=== PATIENT | female | born 1940 | race Asian ===

== ENCOUNTER 2017-09-05 00:08 | Inpatient (IN) | payer MEDICARE, MEDICAID ==
[~2017-09-05] VITALS: Ht 152.4 cm; Wt 68.9 kg
[2017-09-05] VITALS (20 sets, daily range): BP systolic 91–147; BP diastolic 49–110
--- NOTE | 2017-09-05 00:22 | Emergency Room Report ---
History of Present Illness General Chief Complaint: Multiple Trauma/Fall Source: Medical Record Present Illness HPI Patient was reported to have a fall while walking at the nursing facility History is obtained from report from paramedics and the nursing facility reports Reportedly the patient is in with 3 with some assistance usually and had a trip and fall Patient has history of CVA There appears to be imaging showing left femoral fracture There is no reports of vomiting or diarrhea unknown regarding lapse of consciousness Patient has discomfort to the left hip Allergies: Coded Allergies: No Known Allergies (Unverified , 09/05/17) Patient History Past Medical History: see triage record Pertinent Family History: none Last Menstrual Period: n/a Reviewed Nursing Documentation: PMH: Agreed, PSxH: Agreed Nursing Documentation-PMH Past Medical History: No History, Except For Review of Systems All Other Systems: limited - Other than the ones mentioned in the history of present illness all others are reviewed however they do stay limited due to the patient's mental status Physical Exam Vital Signs Date Time Temp Pulse Resp B/P (MAP) Pulse Ox O2 Delivery O2 Flow Rate FiO2 09/05/17 00:03 98.8 136 34 142/88 96 Room Air Sp02 EP Interpretation: reviewed, normal General Appearance: no apparent distress Head: normocephalic, atraumatic Eyes: bilateral eye PERRL, bilateral eye EOMI ENT: normal pharynx Neck: full range of motion, supple Respiratory: lungs clear Cardiovascular #1: tachycardia, irregularly irregular Gastrointestinal: non tender, soft Genitourinary: no CVA tenderness Musculoskeletal: other - Left leg is rotated externally and shortened compared to the right Neurologic: responsive Skin: normal color, no rash Lymphatic: no adenopathy Medical Decision Making Diagnostic Impression: Primary Impression: Femoral neck fracture Additional Impressions: UTI (urinary tract infection) Atrial fibrillation Atrial fibrillation with RVR ER Course Patient present in nature fibrillation Review of records reveals that she does have a history of fibrillation However patient was tachycardic X-ray imaging reveals evidence of a left-sided femoral neck fracture Reports of the paramedics state that the patient usually ambulatory Orthopedics is involved and the patient is admitted for further care Labs Test 09/05/17 00:18 09/05/17 00:30 09/05/17 01:20 09/05/17 02:36 White Blood Count 12.2 K/UL (4.8-10.8) Red Blood Count 4.55 M/UL (4.20-5.40) Hemoglobin 14.8 G/DL (12.0-16.0) Hematocrit 44.1 % (37.0-47.0) Mean Corpuscular Volume 97 FL (80-99) Mean Corpuscular Hemoglobin 32.4 PG (27.0-31.0) Mean Corpuscular Hemoglobin Concent 33.5 G/DL (32.0-36.0) Red Cell Distribution Width 12.4 % (11.6-14.8) Platelet Count 212 K/UL (150-450) Mean Platelet Volume 6.4 FL (6.5-10.1) Neutrophils (%) (Auto) 77.1 % (45.0-75.0) Lymphocytes (%) (Auto) 15.2 % (20.0-45.0) Monocytes (%) (Auto) 7.1 % (1.0-10.0) Eosinophils (%) (Auto) 0.1 % (0.0-3.0) Basophils (%) (Auto) 0.5 % (0.0-2.0) Prothrombin Time 9.6 SEC (9.30-11.50) Prothromb Time International Ratio 0.9 (0.9-1.1) Activated Partial Thromboplast Time 24 SEC (23-33) Sodium Level 141 MMOL/L (136-145) Potassium Level 4.2 MMOL/L (3.5-5.1) Chloride Level 104 MMOL/L (98-107) Carbon Dioxide Level 29 MMOL/L (21-32) Anion Gap 8 mmol/L (5-15) Blood Urea Nitrogen 18 mg/dL (7-18) Creatinine 1.0 MG/DL (0.55-1.30) Estimat Glomerular Filtration Rate mL/min (>60) Glucose Level 123 MG/DL (74-106) Calcium Level 9.2 MG/DL (8.5-10.1) Total Bilirubin 0.7 MG/DL (0.2-1.0) Aspartate Amino Transf (AST/SGOT) 26 U/L (15-37) Alanine Aminotransferase (ALT/SGPT) 27 U/L (12-78) Alkaline Phosphatase 72 U/L (46-116) Total Creatine Kinase 113 U/L (26-308) Creatine Kinase MB 2.1 NG/ML (0.0-3.6) Creatine Kinase MB Relative Index 1.8 Troponin I 0.057 ng/mL (0.000-0.056) Total Protein 7.3 G/DL (6.4-8.2) Albumin 3.7 G/DL (3.4-5.0) Globulin 3.6 g/dL Albumin/Globulin Ratio 1.0 (1.0-2.7) Lipase 113 U/L (73-393) Lactic Acid Level 2.50 mmol/L (0.66-2.22) 2.60 mmol/L (0.66-2.22) Urine Color Pale yellow Urine Appearance Slightly cloudy Urine pH 6 (4.5-8.0) Urine Specific [place] 1.020 (1.005-1.035) Urine Protein 1+ (NEGATIVE) Urine Glucose (UA) 1+ (NEGATIVE) Urine Ketones Negative (NEGATIVE) Urine Occult Blood 1+ (NEGATIVE) Urine Nitrite Positive (NEGATIVE) Urine Bilirubin Negative (NEGATIVE) Urine Urobilinogen Normal MG/DL (0.0-1.0) Urine Leukocyte Esterase 2+ (NEGATIVE) Urine RBC 2-4 /HPF (0 - 2) Urine WBC 30-40 /HPF (0 - 2) Urine Squamous Epithelial Cells Few /LPF (NONE/OCC) Urine Bacteria Many /HPF (NONE) Rhythm Strip Diag. Results EP Interpretation: yes Rate: 120 Rhythm: no PVC's, no ectopy, other - irregularly irregular Chest X-Ray Diagnostic Results Chest X-Ray Diagnostic Results : Chest X-Ray Ordered: Yes # of Views/Limited/Complete: 1 View Indication: Chest Pain EP Interpretation: Yes Interpretation: no consolidation, no effusion, no pneumothorax, other - Mediastinum is abnormal left lower lobe dizziness Impression: No acute disease Electronically Signed by: Lien Maurice DO Other X-Ray Diagnostic Results Other X-Ray Diagnostic Results : X-Ray ordered: left hip # of Views/Limited Vs Complete: 3 View Indication: Pain EP Interpretation: Yes Interpretation: no soft tissue swelling, other - Acute fracture with mild dislocation left femoral neck Impression: Other - left femoral neck fracture Electronically Signed by: Lien Maurice DO CT/MRI/US Diagnostic Results CT/MRI/US Diagnostic Results : Impression CT pelvic: Left femoral neck fracture Last Vital Signs Date Time Temp Pulse Resp B/P (MAP) Pulse Ox O2 Delivery O2 Flow Rate FiO2 09/05/17 00:03 98.8 136 34 142/88 96 Room Air Status: improved Disposition: ADMITTED INPATIENT Condition: Serious LIEN MAURICE D.O. Sep 05, 2017 00:22
[2017-09-05 00:34] LABS: BASOPHILS % (AUTO) 0.5 % (0.0-2.0); EOSINOPHILS % (AUTO) 0.1 % (0.0-3.0); LYMPHOCYTES % (AUTO) 15.2 % (20.0-45.0); MEAN CORPUSCULAR HEMOGLOBIN 32.4 PG (27.0-31.0); MEAN CORPUSCULAR HGB CONC 33.5 G/DL (32.0-36.0); MEAN CORPUSCULAR VOLUME 97 FL (80-99); MEAN PLATELET VOLUME 6.4 FL (6.5-10.1); MONOCYTES % (AUTO) 7.1 % (1.0-10.0); NEUTROPHILS % (AUTO) 77.1 % (45.0-75.0); PLATELET COUNT 212 K/UL (150-450); RED BLOOD COUNT 4.55 M/UL (4.20-5.40); RED CELL DISTRIBUTION WIDTH 12.4 % (11.6-14.8); WHITE BLOOD COUNT 12.2 K/UL (4.8-10.8)
[2017-09-05 00:45] LABS: INR 0.9 (0.9-1.1); PROTHROMBIN TIME 9.6 SEC (9.30-11.50)
[2017-09-05 01:07] LABS: ALANINE AMINOTRANSFERASE 27 U/L (12-78); ANION GAP 8 mmol/L (5-15); ASPARTATE AMINO TRANSFERASE 26 U/L (15-37); CALCIUM 9.2 MG/DL (8.5-10.1); CARBON DIOXIDE 29 MMOL/L (21-32); CHLORIDE 104 MMOL/L (98-107); CKMB 2.1 NG/ML (0.0-3.6); LIPASE 113 U/L (73-393); POTASSIUM 4.2 MMOL/L (3.5-5.1); SODIUM 141 MMOL/L (136-145); TOTAL PROTEIN 7.3 G/DL (6.4-8.2)
[2017-09-05 01:18] LABS: REFLEX LACTIC ACID YES OR NO YES
[2017-09-05] MEDS ORDERED: dilTIAZem HCl 25mg/5ml Inj IV ONE ×2 (01:30→16:30)
[2017-09-05 01:34] LABS: APPEARANCE,URINE SLIGHTLY CLOUDY; KETONES,URINE NEGATIVE (NEGATIVE); LEUKOCYTE ESTERASE ,URINE 2+ (NEGATIVE); NITRITE,URINE POSITIVE (NEGATIVE); PH,URINE 6 (4.5-8.0); PROTEIN,URINE 1+ (NEGATIVE); UROBILINOGEN,URINE NORMAL MG/DL (0.0-1.0)
[2017-09-05 01:44] LABS: BACTERIA,URINE MANY /HPF; SQUAMOUS EPITHELIAL CELL,UR FEW /LPF (NONE/OCC); WBC,URINE 30-40 /HPF (0 - 2)
[2017-09-05] MEDS ORDERED: ADVANCED ANTAC355 ML ORAL (01:49)
[2017-09-05] MEDS ORDERED: POTASSIUM 25 M25 ME1 PO (01:50)
[2017-09-05] MEDS ORDERED: ACETAMINOPHEN325 M1 ORAL (01:55)
[2017-09-05] MEDS ORDERED: CARDIZEM30 M1 PO (01:58)
[2017-09-05] MEDS ORDERED: DIGOXIN125 MCG ORAL (01:58)
[2017-09-05] MEDS ORDERED: Morphine Sulfate 2mg/ml Inj IVP ONE (02:00)
[2017-09-05] MEDS ORDERED: FERROUS FUMARA324 M1 PO (02:03)
[2017-09-05] MEDS ORDERED: DULCOLAX10 MG RC (02:03)
[2017-09-05] MEDS ORDERED: METOPROLOL TART50 MG ORAL (02:03)
[2017-09-05] MEDS ORDERED: cefTRIAXone 1 GM in D5W 55 ML IVPB ONE (02:45)
[2017-09-05] MEDS ORDERED: Flu Vaccine Quadrivalent 0.5ml IM ONE (09:00)
[2017-09-05] MEDS ORDERED: Pneumococcal Vaccine 25mcg/0.5ml IM ONE (09:00)
--- NOTE | 2017-09-05 09:57 | Diagnostic Imaging Report ---
Indication: Pelvic pain and trauma. Technique: Continuous helical transaxial imaging of the pelvis was obtained from the iliac crest to the pubic symphysis. Coronal 2-D reformats were also obtained. Study obtained in a Siemens sensation [address] Intravenous non-ionic contrast was administered. Total Dose length Product (DLP): [address] Dose Index Volume (CTDIvol): 2.25, 0.25, 14.16 mGy Comparison: None Findings: There is acute fracture of the left femoral neck. This is intracapsular. The fracture is slightly impacted and mildly displaced. Bones are osteopenic in keeping with the patient's advanced age. No other fractures are identified. Degenerative facet arthropathy noted in the lower lumbar spine as well as narrowing of intervertebral discs, vacuum phenomena within the discs and endplate spurs. Minimal arterial vascular calcifications noted within the iliac arteries. Small cavitation noted in the antrum part of the uterus probably associated with a small fibroid. Impression: Acute left femoral neck fracture. Other findings as above. [facility] has communicated the preliminary results to the Emergency Department. Their findings are largely concordant with this report. The CT scanner at [facility] is accredited by the [employer] and the scans are performed using dose optimization techniques as appropriate to a performed exam including Automatic Exposure control.
--- NOTE | 2017-09-05 10:19 | Consultation ---
Consult Note Consult Note 76 yo female with fall and left hip femoral neck fracture xray reviewed Assessment/Plan left hip femoral neck fracture plan for left hip hemiarthroplasty on optimize medically. 2D echo npo at [facility] for sx 7am IRINA MIR Sep 05, 2017 10:19
--- NOTE | 2017-09-05 12:39 | Diagnostic Imaging Report ---
Indication: Dyspnea Comparison: None A single view chest radiograph was obtained. Findings: Prominent pulmonary vascularity and heart size noted. Aorta is calcified. Bones are osteopenic. Impression: Prominent vascularity without overt CHF
--- NOTE | 2017-09-05 12:39 | Diagnostic Imaging Report ---
Indications: hip pain Findings: Two views of the left hip were obtained. Slightly displaced intracapsular fracture of the left femoral neck demonstrated. The fracture appears acute. The bones are osteopenic. Impression: Acute fracture of the left femoral neck
--- NOTE | 2017-09-05 15:55 | Cardiac Electrophysiology PN ---
Subjective Subjective [id number] Objective Last 24 Hour Vital Signs Date Time Temp Pulse Resp B/P (MAP) Pulse Ox O2 Delivery O2 Flow Rate FiO2 09/05/17 15:49 98.3 100 18 121/89 91 Room Air 09/05/17 12:00 135 09/05/17 11:47 98.3 73 18 133/82 91 Room Air 09/05/17 08:10 98.1 93 18 138/103 93 Room Air 09/05/17 08:00 110 09/05/17 04:00 102 09/05/17 03:37 98.1 114 22 138/86 93 Room Air 09/05/17 03:36 116 09/05/17 03:15 98.0 97 20 130/84 95 Nasal Cannula 2.0 09/05/17 02:53 98.0 97 20 130/84 95 Nasal Cannula 2.0 09/05/17 02:39 98.0 09/05/17 01:38 98.8 98 18 121/84 93 Room Air 09/05/17 01:24 143 147/100 09/05/17 00:03 98.8 136 34 142/88 96 Room Air Intake and Output 09/05/17 09/06/17 19:00 07:00 Intake Total 120 ml Balance 120 ml Intake Oral 120 ml # Voids 2 Laboratory Tests Test 09/05/17 00:18 09/05/17 00:30 09/05/17 01:20 09/05/17 02:36 White Blood Count 12.2 K/UL (4.8-10.8) H Red Blood Count 4.55 M/UL (4.20-5.40) Hemoglobin 14.8 G/DL (12.0-16.0) Hematocrit 44.1 % (37.0-47.0) Mean Corpuscular Volume 97 FL (80-99) Mean Corpuscular Hemoglobin 32.4 PG (27.0-31.0) H Mean Corpuscular Hemoglobin Concent 33.5 G/DL (32.0-36.0) Red Cell Distribution Width 12.4 % (11.6-14.8) Platelet Count 212 K/UL (150-450) Mean Platelet Volume 6.4 FL (6.5-10.1) L Neutrophils (%) (Auto) 77.1 % (45.0-75.0) H Lymphocytes (%) (Auto) 15.2 % (20.0-45.0) L Monocytes (%) (Auto) 7.1 % (1.0-10.0) Eosinophils (%) (Auto) 0.1 % (0.0-3.0) Basophils (%) (Auto) 0.5 % (0.0-2.0) Prothrombin Time 9.6 SEC (9.30-11.50) Prothromb Time International Ratio 0.9 (0.9-1.1) Activated Partial Thromboplast Time 24 SEC (23-33) Sodium Level 141 MMOL/L (136-145) Potassium Level 4.2 MMOL/L (3.5-5.1) Chloride Level 104 MMOL/L (98-107) Carbon Dioxide Level 29 MMOL/L (21-32) Anion Gap 8 mmol/L (5-15) Blood Urea Nitrogen 18 mg/dL (7-18) Creatinine 1.0 MG/DL (0.55-1.30) Estimat Glomerular Filtration Rate mL/min (>60) Glucose Level 123 MG/DL (74-106) H Calcium Level 9.2 MG/DL (8.5-10.1) Total Bilirubin 0.7 MG/DL (0.2-1.0) Aspartate Amino Transf (AST/SGOT) 26 U/L (15-37) Alanine Aminotransferase (ALT/SGPT) 27 U/L (12-78) Alkaline Phosphatase 72 U/L (46-116) Total Creatine Kinase 113 U/L (26-308) Creatine Kinase MB 2.1 NG/ML (0.0-3.6) Creatine Kinase MB Relative Index 1.8 Troponin I 0.057 ng/mL (0.000-0.056) Total Protein 7.3 G/DL (6.4-8.2) Albumin 3.7 G/DL (3.4-5.0) Globulin 3.6 g/dL Albumin/Globulin Ratio 1.0 (1.0-2.7) Lipase 113 U/L (73-393) Lactic Acid Level 2.50 mmol/L (0.66-2.22) H 2.60 mmol/L (0.66-2.22) H Urine Color Pale yellow Urine Appearance Slightly cloudy Urine pH 6 (4.5-8.0) Urine Specific [place] 1.020 (1.005-1.035) Urine Protein 1+ (NEGATIVE) H Urine Glucose (UA) 1+ (NEGATIVE) H Urine Ketones Negative (NEGATIVE) Urine Occult Blood 1+ (NEGATIVE) H Urine Nitrite Positive (NEGATIVE) H Urine Bilirubin Negative (NEGATIVE) Urine Urobilinogen Normal MG/DL (0.0-1.0) Urine Leukocyte Esterase 2+ (NEGATIVE) H Urine RBC 2-4 /HPF (0 - 2) H Urine WBC 30-40 /HPF (0 - 2) H Urine Squamous Epithelial Cells Few /LPF (NONE/OCC) Urine Bacteria Many /HPF (NONE) H ANIYA SMITH Sep 05, 2017 15:55
--- NOTE | 2017-09-05 18:30 | Consultation ---
DATE OF CONSULTATION: ORTHOPEDIC CONSULTATION CONSULTING PHYSICIAN: Kal Iverson M.D. CONSULT CALLED BY: Lien Hoang M.D. HISTORY OF PRESENT ILLNESS: The patient is a pleasant 76-year-old female, who is a resident of [facility]. She was ambulating and she had a mechanical fall yesterday. She was complaining of left hip pain, had a hard time getting up. She was transferred to [facility] ER where she was noted to have a left hip femoral neck fracture. Orthopedic consult has been called for surgical intervention. The patient has a history of stroke. She does ambulate, but often unsteadily per her son and she uses a walker to get around. She denies any headache, dizziness, or syncopal episodes prior to the fall. PAST MEDICAL HISTORY: History of stroke. PAST SURGICAL HISTORY: None. CURRENT MEDICATIONS: Please see chart. ALLERGIES: None. SOCIAL HISTORY: She has a son who lives in the area, who is here with her today. She is a resident of [facility]. She is normally independent with her activities, although she has unsteady gait and uses a walker occasionally. She does not speak much [place]ian. PHYSICAL EXAMINATION: GENERAL: She is pleasant. She is resting comfortably in bed. Her left lower extremity is shortened and rotated, and she has some tenderness to palpation. She is neurovascularly intact. Her son is at bedside during examination and helps with translation. She is alert and oriented. She understands what is going on. LABORATORY AND DIAGNOSTIC DATA: Her x-ray and CT are reviewed. There is a left hip femoral neck fracture. IMPRESSION: Left hip femoral neck fracture. DISCUSSION: At this time, I discussed with the patient and her son my findings and my recommendation for left hip hemiarthroplasty. We also discussed nonsurgical intervention, although the patient's son understands that with nonsurgical intervention, she will be bedbound and unable to ambulate and may have chronic pain issues and her goal is to be up and standing and using a walker again. Therefore, again we recommend left hip hemiarthroplasty. We talked about the surgery including what is involved with rehabilitation recovery as well as the surgical procedure. The patient understands that there is risk of anesthesia, which will be discussed further by anesthesiologist. There is a risk of fracture, dislocation, hardware failure, need for revision surgery down the line, possible need for total hip arthroplasty. There is a risk of leg-length discrepancy, infection, bleeding, DVT and PE. This was all discussed with them and they did verbalize understanding. Nurse was at the bedside as well to help with additional translation and understanding. We will work on getting this set up for . We do need cardiac clearance and medical clearance. A 2D echo has been ordered. We will have Dr. Hoang see her and if he recommends cardiology involvement as well, we will certainly defer that. We will follow along, get this done on , and have her cleared medically in preparation. All the patient's and family questions were answered. Kal Iverson M.D. Shlomo Jalloh DR: KIM JOB#: [id number] CC:
[2017-09-05 19:33] LABS: REFLEX LACTIC ACID YES OR NO YES
[2017-09-05] MEDS: Metoprolol Tartrate 50mg tab ORAL SCH (20:47)
[2017-09-05] MEDS ORDERED: Metoprolol Tartrate 50mg tab ORAL SCH (21:00)
--- NOTE | 2017-09-05 21:00 | Cardiology Report ---
APPROVED REPORT EXAM: Two-dimensional and M-mode echocardiogram with Doppler and color Doppler. INDICATION Preop eval M-Mode DIMENSIONS IVSd1.2 (0.7-1.1cm)Left Atrium (MM)5.4 (1.6-4.0cm) LVDd4.2 (3.5-5.6cm)Aortic Root3.2 (2.0-3.7cm) PWd1.2 (0.7-1.1cm)Aortic Cusp Exc.1.8 (1.5-2.0cm) LVDs2.5 (2.5-4.0cm) PWs1.7 cm Other Information Technically limited study due to poor acoustical windows Normal left ventricular chamber size, systolic function and wall motion. Left ventricular ejection fraction estimated to be 50- 55 %. Mild left ventricular hypertrophy. Anterior Echo-free space, may be due to pericardial fat or effusion. Moderate left atrial enlargement. Right cardiac chamber sizes are within normal limits. Focal aortic valve sclerosis with adequate cusp excursion. Thickened mitral valve leaflets with normal excursion. Mitral annulus and aortic root calcification. Normal pulmonic valve structure. Normal tricuspid valve structure. IVC at normal size with physiologic collapse. A color flow and spectral Doppler study was performed and revealed: Trace aortic regurgitation. Mild mitral regurgitation. Can not determine left ventricular diastolic function by mitral diastolic velocities due to atrial fibrillation. Moderate tricuspid regurgitation. Tricuspid systolic velocities suggests peak right ventricular systolic pressure of 61 mmHg, consistent with severe pulmonary hypertension.
[2017-09-06] VITALS (39 sets, daily range): BP systolic 109–134; BP diastolic 60–106
--- NOTE | 2017-09-06 00:30 | Consultation ---
DATE OF CONSULTATION: 09/05/2017 CARDIOLOGY ELECTROPHYSIOLOGY CONSULTATION CONSULTING PHYSICIAN: Rufino Roger M.D. REFERRING PHYSICIAN: Lien Hoang M.D. REASON FOR CONSULTATION: Atrial fibrillation with rapid ventricular response as well as preoperative clearance prior to hip surgery. HISTORY OF PRESENT ILLNESS: The patient is a 76-year-old lady with history of hypertension who presented to the emergency room after she had a fall while walking at the nursing facility. The patient also has history of CVA. Imaging showed left femoral neck fracture. The patient was admitted and Cardiology consultation was obtained for further evaluation. It is of note that in the emergency room the patient was in atrial fibrillation with rapid ventricular response at 100 to 136 beats per minute. REVIEW OF SYSTEMS: Review of systems was negative other what was mentioned in history of present illness. PAST MEDICAL HISTORY: 1. Hypertension. 2. Atrial fibrillation. MEDICATIONS: While in the group home facility include digoxin 0.125 mg daily, Cardizem 30 mg q.i.d., metoprolol 50 mg b.i.d., but she was not on anticoagulation. FAMILY HISTORY: Noncontributory. SOCIAL HISTORY: She lives in a group home facility. PHYSICAL EXAMINATION: VITAL SIGNS: Show of blood pressure of 121/89, pulse is 135 to 160, respirations 18, and she is afebrile. HEAD AND NECK: Shows no JVD. LUNGS: Clear. CARDIOVASCULAR: Irregularly irregular. S1 and S2, with no gallop or murmur. ABDOMEN: Soft. EXTREMITIES: Left hip tenderness with rotation of left hip. LABORATORY AND DIAGNOSTIC DATA: Echocardiogram showed ejection fraction 55% with mild left atrial enlargement, moderate tricuspid regurgitation. EKG showed atrial fibrillation with rapid ventricular response at rate of 132 beats per minute with voltage criteria for left ventricular hypertrophy and inferior as well as anterolateral ischemia on the EKG. ASSESSMENT: 1. Atrial fibrillation with rapid ventricular response with evidence of ischemia. We will transfer the patient to intensive care unit and start the patient on Cardizem drip. I will resume the patient's digoxin and metoprolol as well. I will hold off on anticoagulation until the patient is cleared from orthopedic perspective as we did not want the patient developed bleeding at the sites of her hip fracture. It is of note that the patient's CHADS2 score is more than 3 and she certainly needs long-term anticoagulation especially in view of female gender age of 76, hypertension, as well as history of prior cerebrovascular accident . 2. Hypertension. Resume the patient's Cardizem and metoprolol. 3. Ischemic changes on electrocardiogram. After stabilization of the heart rate, the patient would need nuclear stress test prior to her hip surgery. 4. Status post left hip fracture. Further evaluation by Dr. Iverson. Thank very much, Dr. Hoang, for allowing me to participate in the care of this patient. Please do not hesitate to contact for any questions regarding my evaluation. Rufino Roger M.D. DR: Matilde JOB#: [id number] CC:
[2017-09-06 05:23] LABS: BASOPHILS % (AUTO) 0.7 % (0.0-2.0); EOSINOPHILS % (AUTO) 1.5 % (0.0-3.0); LYMPHOCYTES % (AUTO) 14.7 % (20.0-45.0); MEAN CORPUSCULAR HEMOGLOBIN 33.7 PG (27.0-31.0); MEAN CORPUSCULAR HGB CONC 34.8 G/DL (32.0-36.0); MEAN CORPUSCULAR VOLUME 97 FL (80-99); MEAN PLATELET VOLUME 6.9 FL (6.5-10.1); MONOCYTES % (AUTO) 8.3 % (1.0-10.0); NEUTROPHILS % (AUTO) 74.8 % (45.0-75.0); PLATELET COUNT 144 K/UL (150-450); RED BLOOD COUNT 3.95 M/UL (4.20-5.40); RED CELL DISTRIBUTION WIDTH 12.5 % (11.6-14.8); WHITE BLOOD COUNT 8.7 K/UL (4.8-10.8)
[2017-09-06 06:03] LABS: ALANINE AMINOTRANSFERASE 19 U/L (12-78); ALBUMIN/GLOBULIN RATIO 0.8 (1.0-2.7); ANION GAP 5 mmol/L (5-15); ASPARTATE AMINO TRANSFERASE 20 U/L (15-37); CALCIUM 8.6 MG/DL (8.5-10.1); CARBON DIOXIDE 26 MMOL/L (21-32); CHLORIDE 104 MMOL/L (98-107); POTASSIUM 3.2 MMOL/L (3.5-5.1); SODIUM 135 MMOL/L (136-145); THYROID STIMULATING HORMONE 1.048 uiU/mL (0.360-3.740); TOTAL PROTEIN 6.5 G/DL (6.4-8.2)
[2017-09-06 06:09] LABS: DIGOXIN 0.3 NG/ML (0.9-2.0)
[2017-09-06 06:33] LABS: BILIRUBIN,DIRECT 0.2 MG/DL (0.0-0.3)
--- NOTE | 2017-09-06 08:45 | History and Physical Report ---
DATE OF ADMISSION: 09/05/2017 HISTORY OF PRESENT ILLNESS: The patient is a poor historian. She is here because of femur fracture and also has atrial fibrillation with rapid ventricular response. The patient basically unreliable historian. The patient admitted initially to telemetry for atrial fibrillation with rapid ventricular response. The patient denies any chest pain. Denies any nausea, vomiting, or diarrhea. The patient is also admitted for left femur neck fracture. The patient is uncertain at this point in regards to the details of the hip fracture, we have to do more investigation. PAST MEDICAL HISTORY: Atrial fibrillation, hypertension, iron-deficiency anemia, . PAST SURGICAL HISTORY: None known. MEDICATIONS: Digoxin, diltiazem, ferrous sulfate, metoprolol, Tylenol. ALLERGIES: No known drug allergies. SOCIAL HISTORY: No history of smoking, alcohol, or illicit drugs. Lives in [facility]. FAMILY HISTORY: Noncontributory. REVIEW OF SYSTEMS: HEENT: Denies headaches. RESPIRATORY: Denies shortness of breath. Denies cough. CARDIOVASCULAR: Denies chest pain. GASTROINTESTINAL: Denies nausea, vomiting, or diarrhea. EXTREMITIES: Denies pain in the extremities. CENTRAL NERVOUS SYSTEM: The patient is a poor historian. PHYSICAL EXAMINATION: VITAL SIGNS: Temperature is 98.1 degrees, pulse 98, and blood pressure is 121/66. HEENT: PERRLA. NECK: Supple. No lymphadenopathy. CARDIOVASCULAR: Irregularly irregular. Tachycardiac. GASTROINTESTINAL: Soft. Positive bowel sounds. No organomegaly. EXTREMITIES: No edema. Overall decreased range of motion in the left hip due to pain. NEUROLOGIC: The patient is not oriented. LABORATORY AND DIAGNOSTIC DATA: WBC of 12.2, hemoglobin 14.8, and platelets 212,000. Lactic acid 2.5. Troponin 0.057. ASSESSMENT: Atrial fibrillation with rapid ventricular response, elevated troponin, and left femur neck fracture. I have asked Dr. Belcher, Dr. Roger, Dr. Iverson to see the patient for the above-mentioned diagnoses and treatment. Cardiac clearance/surgical clearance will be up to Dr. Roger, so surgical clearance will be decided by Dr. Roger, food service on the case. Lien Hoang M.D. DR: Kimberly JOB#: [id number] CC:
[2017-09-06] MEDS: Metoprolol Tartrate 50mg tab ORAL SCH ×2 (09:04→20:37)
[2017-09-06] MEDS: KCl 10% 40mEq/30ml liquid ORAL SCH ×2 (12:05→16:29)
--- NOTE | 2017-09-06 12:33 | General Progress Note ---
Assessment/Plan Problem List: (1) A-fib ICD Codes: I48.91 - Unspecified atrial fibrillation SNOMED: 00938374 (2) Femur fracture, left ICD Codes: S72.92XA - Unspecified fracture of left femur, initial encounter for closed fracture SNOMED: 43920979 (3) Atrial fibrillation ICD Codes: I48.91 - Unspecified atrial fibrillation SNOMED: 84417777 (4) Femoral neck fracture ICD Codes: S72.009A - Fracture of unspecified part of neck of unspecified femur , initial encounter for closed fracture SNOMED: 3160106 (5) Atrial fibrillation with RVR ICD Codes: I48.91 - Unspecified atrial fibrillation SNOMED: 152699182711911 Status: progressing Assessment/Plan a fib w rvr femure neck fracture cardiac/surgical clearance per dr prakash afebrile no wheezing reviewed chart and labs Subjective Allergies: Coded Allergies: No Known Allergies (Unverified , 09/05/17) Subjective pain at hip Objective Last 24 Hour Vital Signs Date Time Temp Pulse Resp B/P (MAP) Pulse Ox O2 Delivery O2 Flow Rate FiO2 09/06/17 11:30 88 18 112/86 98 Nasal Cannula 2.0 09/06/17 11:00 82 18 124/86 98 Nasal Cannula 2.0 09/06/17 10:30 73 18 131/88 97 Nasal Cannula 2.0 09/06/17 10:00 80 20 123/88 99 Nasal Cannula 2.0 09/06/17 09:30 82 20 117/69 98 Nasal Cannula 2.0 09/06/17 09:08 89 09/06/17 09:04 97 129/85 09/06/17 09:00 84 18 129/85 97 Nasal Cannula 2.0 09/06/17 08:30 85 18 132/96 99 Nasal Cannula 2.0 09/06/17 08:00 97 18 126/93 99 Nasal Cannula 2.0 09/06/17 08:00 95 09/06/17 07:30 98.5 95 16 134/86 97 Nasal Cannula 2.0 09/06/17 07:00 94 18 125/83 98 Nasal Cannula 2.0 09/06/17 06:30 86 18 125/80 98 Nasal Cannula 2.0 09/06/17 06:00 74 18 122/85 98 Nasal Cannula 2.0 09/06/17 05:30 84 18 134/87 98 Nasal Cannula 2.0 09/06/17 05:00 88 18 123/91 98 Nasal Cannula 2.0 09/06/17 04:30 83 18 109/69 98 Nasal Cannula 2.0 09/06/17 04:00 79 09/06/17 04:00 98.0 80 18 124/73 98 Nasal Cannula 2.0 09/06/17 03:30 72 18 133/78 98 Nasal Cannula 2.0 09/06/17 03:00 91 18 119/83 98 Nasal Cannula 2.0 09/06/17 02:30 80 18 125/76 98 Nasal Cannula 2.0 09/06/17 02:02 99.1 09/06/17 02:00 99.0 80 18 130/80 98 Nasal Cannula 2.0 09/06/17 01:30 88 18 130/80 98 Nasal Cannula 2.0 09/06/17 01:00 100.5 87 18 132/87 98 Nasal Cannula 2.0 09/06/17 00:36 99 125/106 09/06/17 00:30 96 18 130/74 98 Nasal Cannula 2.0 09/06/17 00:00 99.1 99 18 125/106 98 Nasal Cannula 2.0 09/06/17 00:00 81 09/05/17 23:30 81 18 136/105 98 Nasal Cannula 2.0 09/05/17 23:00 86 18 110/70 98 Nasal Cannula 2.0 09/05/17 22:30 75 18 112/49 98 Nasal Cannula 2.0 09/05/17 22:00 75 18 112/49 98 Nasal Cannula 2.0 09/05/17 21:30 73 18 91/55 98 Nasal Cannula 2.0 09/05/17 21:00 110 18 147/91 98 Nasal Cannula 2.0 09/05/17 20:47 127 134/103 09/05/17 20:30 110 18 147/91 98 Nasal Cannula 2.0 09/05/17 20:00 98.3 110 18 134/110 98 Nasal Cannula 2.0 09/05/17 20:00 113 09/05/17 19:30 113 18 118/91 98 Nasal Cannula 2.0 09/05/17 19:18 97 Nasal Cannula 2.0 28 09/05/17 19:18 Nasal Cannula 2.0 28 09/05/17 19:00 112 18 133/92 97 Nasal Cannula 2.0 09/05/17 18:30 114 20 110/66 98 Nasal Cannula 2.0 09/05/17 18:00 108 18 95/66 98 Nasal Cannula 2.0 09/05/17 17:57 110 99/69 09/05/17 17:00 98.1 98 18 131/86 96 Nasal Cannula 2.0 09/05/17 16:59 143 131/86 09/05/17 16:45 133 09/05/17 16:00 133 09/05/17 15:49 98.3 100 18 121/89 91 Room Air Intake and Output 09/06/17 09/07/17 19:00 07:00 Intake Total 192 ml Output Total 0 ml Balance 192 ml Intake Oral 0 ml IV Total 192 ml Output Urine Total 0 ml Laboratory Tests 09/05/17 18:10: Lactic Acid Level 2.20, Troponin I 0.052 09/06/17 03:05: Troponin I 0.041, White Blood Count 8.7, Red Blood Count 3.95L, Hemoglobin 13.3 , Hematocrit 38.2, Mean Corpuscular Volume 97, Mean Corpuscular Hemoglobin 33.7H , Mean Corpuscular Hemoglobin Concent 34.8, Red Cell Distribution Width 12.5, Platelet Count 144L, Mean Platelet Volume 6.9, Neutrophils (%) (Auto) 74.8, Lymphocytes (%) (Auto) 14.7L, Monocytes (%) (Auto) 8.3, Eosinophils (%) (Auto) 1.5, Basophils (%) (Auto) 0.7, Sodium Level 135L, Potassium Level 3.2L, Chloride Level 104, Carbon Dioxide Level 26, Anion Gap 5, Blood Urea Nitrogen 15 , Creatinine 1.0, Estimat Glomerular Filtration Rate , Glucose Level 113H, Calcium Level 8.6, Total Bilirubin 1.3H, Direct Bilirubin 0.2, Aspartate Amino Transf (AST/SGOT) 20, Alanine Aminotransferase (ALT/SGPT) 19, Alkaline Phosphatase 61, Pro-B-Type Natriuretic Peptide 4835H, Total Protein 6.5, Albumin 2.9L, Globulin 3.6, Albumin/Globulin Ratio 0.8L, Thyroid Stimulating Hormone (TSH) 1.048, Free Thyroxine 1.45, Digoxin Level 0.3L Height (Feet): 5 Height (Inches): 1.00 Weight (Pounds): 146 Cardiovascular: regularly irregular Respiratory/Chest: lungs clear Abdomen: soft Lien Hoang MD Sep 06, 2017 12:33
--- NOTE | 2017-09-06 13:11 | Consultation ---
Consult Note Consult Note Patient was reported to have a fall while walking at the nursing facility History is obtained from report from paramedics and the nursing facility reports Reportedly the patient is in with 3 with some assistance usually and had a trip and fall Patient has history of CVA There appears to be imaging showing left femoral fracture There is no reports of vomiting or diarrhea unknown regarding lapse of consciousness Patient has discomfort to the left hip Allergies: No Known Allergies (Unverified , 09/05/17) Assessment/Plan UTI start Rocephin Low K- PO supplement At fib in ICU on Cardiazem drip HTN adjust meds Ischemia in EKG Lt hip Fx Echo: Left ventricular ejection fraction estimated to be 50- 55 %. Mild left ventricular hypertrophy. Plan: PO K Gastric support monitor lytes and H&H and renal parameters per orders- per consultants FREDY DASH Sep 06, 2017 13:11
--- NOTE | 2017-09-06 15:24 | Cardiac Electrophysiology PN ---
Assessment/Plan Assessment/Plan 1. Atrial fibrillation with rapid ventricular response with evidence of ischemia. Taper off Cardizem drip.Increase Lopressor to 100 bid. Continue Digoxin. I will hold off on anticoagulation until the patient is cleared from orthopedic perspective as we did not want the patient developed bleeding at the sites of her hip fracture. It is of note that the patient's CHADS2 score is 5 and she certainly needs long-term anticoagulation especially in view of female gender age of 76, hypertension, as well as history of prior cerebrovascular accident . 2. Hypertension. On metoprolol 100 bid. 3. Ischemic changes on electrocardiogram. Nuclear stress test tomorrow prior to her hip surgery. 4. Status post left hip fracture. Further evaluation by . Subjective Subjective In ICU on Cardizem drip still atrial fib with rate above 100. Objective Last 24 Hour Vital Signs Date Time Temp Pulse Resp B/P (MAP) Pulse Ox O2 Delivery O2 Flow Rate FiO2 09/06/17 15:00 98 18 122/92 97 Nasal Cannula 2.0 09/06/17 14:30 98 18 132/79 97 Nasal Cannula 2.0 09/06/17 14:00 88 20 112/79 99 Nasal Cannula 2.0 09/06/17 13:30 92 20 128/92 99 Nasal Cannula 2.0 09/06/17 13:00 90 20 131/92 99 Nasal Cannula 2.0 09/06/17 12:30 88 20 132/76 97 Nasal Cannula 2.0 09/06/17 12:00 86 09/06/17 12:00 98.1 89 18 122/64 98 Nasal Cannula 2.0 09/06/17 11:30 88 18 112/86 98 Nasal Cannula 2.0 09/06/17 11:00 82 18 124/86 98 Nasal Cannula 2.0 09/06/17 10:30 73 18 131/88 97 Nasal Cannula 2.0 09/06/17 10:00 80 20 123/88 99 Nasal Cannula 2.0 09/06/17 09:30 82 20 117/69 98 Nasal Cannula 2.0 09/06/17 09:08 89 09/06/17 09:04 97 129/85 09/06/17 09:00 84 18 129/85 97 Nasal Cannula 2.0 09/06/17 08:30 85 18 132/96 99 Nasal Cannula 2.0 09/06/17 08:00 97 18 126/93 99 Nasal Cannula 2.0 09/06/17 08:00 95 09/06/17 07:30 98.5 95 16 134/86 97 Nasal Cannula 2.0 09/06/17 07:00 94 18 125/83 98 Nasal Cannula 2.0 09/06/17 06:30 86 18 125/80 98 Nasal Cannula 2.0 09/06/17 06:00 74 18 122/85 98 Nasal Cannula 2.0 09/06/17 05:30 84 18 134/87 98 Nasal Cannula 2.0 09/06/17 05:00 88 18 123/91 98 Nasal Cannula 2.0 09/06/17 04:30 83 18 109/69 98 Nasal Cannula 2.0 09/06/17 04:00 79 09/06/17 04:00 98.0 80 18 124/73 98 Nasal Cannula 2.0 09/06/17 03:30 72 18 133/78 98 Nasal Cannula 2.0 09/06/17 03:00 91 18 119/83 98 Nasal Cannula 2.0 09/06/17 02:30 80 18 125/76 98 Nasal Cannula 2.0 09/06/17 02:02 99.1 09/06/17 02:00 99.0 80 18 130/80 98 Nasal Cannula 2.0 09/06/17 01:30 88 18 130/80 98 Nasal Cannula 2.0 09/06/17 01:00 100.5 87 18 132/87 98 Nasal Cannula 2.0 09/06/17 00:36 99 125/106 09/06/17 00:30 96 18 130/74 98 Nasal Cannula 2.0 09/06/17 00:00 99.1 99 18 125/106 98 Nasal Cannula 2.0 09/06/17 00:00 81 09/05/17 23:30 81 18 136/105 98 Nasal Cannula 2.0 09/05/17 23:00 86 18 110/70 98 Nasal Cannula 2.0 09/05/17 22:30 75 18 112/49 98 Nasal Cannula 2.0 09/05/17 22:00 75 18 112/49 98 Nasal Cannula 2.0 09/05/17 21:30 73 18 91/55 98 Nasal Cannula 2.0 09/05/17 21:00 110 18 147/91 98 Nasal Cannula 2.0 09/05/17 20:47 127 134/103 09/05/17 20:30 110 18 147/91 98 Nasal Cannula 2.0 09/05/17 20:00 98.3 110 18 134/110 98 Nasal Cannula 2.0 09/05/17 20:00 113 09/05/17 19:30 113 18 118/91 98 Nasal Cannula 2.0 09/05/17 19:18 97 Nasal Cannula 2.0 28 09/05/17 19:18 Nasal Cannula 2.0 28 09/05/17 19:00 112 18 133/92 97 Nasal Cannula 2.0 09/05/17 18:30 114 20 110/66 98 Nasal Cannula 2.0 09/05/17 18:00 108 18 95/66 98 Nasal Cannula 2.0 09/05/17 17:57 110 99/69 09/05/17 17:00 98.1 98 18 131/86 96 Nasal Cannula 2.0 09/05/17 16:59 143 131/86 09/05/17 16:45 133 09/05/17 16:00 133 09/05/17 15:49 98.3 100 18 121/89 91 Room Air Intake and Output 09/06/17 09/07/17 19:00 07:00 Intake Total 192 ml Output Total 0 ml Balance 192 ml Intake Oral 0 ml IV Total 192 ml Output Urine Total 0 ml Laboratory Tests Test 09/05/17 18:10 09/06/17 03:05 Lactic Acid Level 2.20 mmol/L (0.66-2.22) Troponin I 0.052 ng/mL (0.000-0.056) 0.041 ng/mL (0.000-0.056) White Blood Count 8.7 K/UL (4.8-10.8) Red Blood Count 3.95 M/UL (4.20-5.40) L Hemoglobin 13.3 G/DL (12.0-16.0) Hematocrit 38.2 % (37.0-47.0) Mean Corpuscular Volume 97 FL (80-99) Mean Corpuscular Hemoglobin 33.7 PG (27.0-31.0) H Mean Corpuscular Hemoglobin Concent 34.8 G/DL (32.0-36.0) Red Cell Distribution Width 12.5 % (11.6-14.8) Platelet Count 144 K/UL (150-450) L Mean Platelet Volume 6.9 FL (6.5-10.1) Neutrophils (%) (Auto) 74.8 % (45.0-75.0) Lymphocytes (%) (Auto) 14.7 % (20.0-45.0) L Monocytes (%) (Auto) 8.3 % (1.0-10.0) Eosinophils (%) (Auto) 1.5 % (0.0-3.0) Basophils (%) (Auto) 0.7 % (0.0-2.0) Sodium Level 135 MMOL/L (136-145) L Potassium Level 3.2 MMOL/L (3.5-5.1) L Chloride Level 104 MMOL/L (98-107) Carbon Dioxide Level 26 MMOL/L (21-32) Anion Gap 5 mmol/L (5-15) Blood Urea Nitrogen 15 mg/dL (7-18) Creatinine 1.0 MG/DL (0.55-1.30) Estimat Glomerular Filtration Rate mL/min (>60) Glucose Level 113 MG/DL (74-106) H Calcium Level 8.6 MG/DL (8.5-10.1) Total Bilirubin 1.3 MG/DL (0.2-1.0) H Direct Bilirubin 0.2 MG/DL (0.0-0.3) Aspartate Amino Transf (AST/SGOT) 20 U/L (15-37) Alanine Aminotransferase (ALT/SGPT) 19 U/L (12-78) Alkaline Phosphatase 61 U/L (46-116) Pro-B-Type Natriuretic Peptide 4835 pg/mL (0-125) H Total Protein 6.5 G/DL (6.4-8.2) Albumin 2.9 G/DL (3.4-5.0) L Globulin 3.6 g/dL Albumin/Globulin Ratio 0.8 (1.0-2.7) L Thyroid Stimulating Hormone (TSH) 1.048 uiU/mL (0.360-3.740) Free Thyroxine 1.45 NG/DL (0.10-1.46) Digoxin Level 0.3 NG/ML (0.9-2.0) L Microbiology Date/Time Source Procedure Growth Status 09/05/17 00:35 Blood Blood Culture - Preliminary NO GROWTH AFTER 24 HOURS Resulted 09/05/17 00:30 Blood Blood Culture - Preliminary NO GROWTH AFTER 24 HOURS Resulted 09/05/17 01:20 Urine,Clean Catch Urine Culture - Preliminary Gram Negative Bacillus 1 Resulted Objective HEAD AND NECK: Shows no JVD. LUNGS: Clear. CARDIOVASCULAR: Irregularly irregular. S1 and S2, with no gallop or murmur. ABDOMEN: Soft. EXTREMITIES: Left hip tenderness with rotation of left hip. ANIYA SMITH Sep 06, 2017 15:24
[2017-09-06] MEDS: Heparin 5000 units/ml inj SUBQ SCH (20:38)
[2017-09-06] MEDS ORDERED: cefTRIAXone 1 GM in D5W 55 ML IVPB SCH (23:00)
[2017-09-07] VITALS (18 sets, daily range): BP systolic 121–167; BP diastolic 66–118
[2017-09-07 06:19] LABS: BASOPHILS % (AUTO) 0.5 % (0.0-2.0); EOSINOPHILS % (AUTO) 0.9 % (0.0-3.0); LYMPHOCYTES % (AUTO) 13.9 % (20.0-45.0); MEAN CORPUSCULAR HEMOGLOBIN 33.6 PG (27.0-31.0); MEAN CORPUSCULAR HGB CONC 34.3 G/DL (32.0-36.0); MEAN CORPUSCULAR VOLUME 98 FL (80-99); MEAN PLATELET VOLUME 7.8 FL (6.5-10.1); MONOCYTES % (AUTO) 7.8 % (1.0-10.0); NEUTROPHILS % (AUTO) 76.9 % (45.0-75.0); PLATELET COUNT 156 K/UL (150-450); RED BLOOD COUNT 3.75 M/UL (4.20-5.40); RED CELL DISTRIBUTION WIDTH 12.4 % (11.6-14.8); WHITE BLOOD COUNT 7.6 K/UL (4.8-10.8)
[2017-09-07 06:25] LABS: CHOLESTEROL 201 MG/DL (< 200); FERRITIN 261 NG/ML (8-388); MAGNESIUM 1.9 MG/DL (1.8-2.4); PHOSPHORUS 2.6 MG/DL (2.5-4.9); URIC ACID 5.5 MG/DL (2.6-7.2)
[2017-09-07 06:55] LABS: FOLIC ACID 14.3 NG/ML (3.1-17.5); IRON 22 ug/dL (50-175); TOTAL IRON BINDING CAPACITY 209 ug/dL (250-450)
[2017-09-07 07:01] LABS: CRP QUANT 18.1 mg/dL (0.00-0.90)
[2017-09-07 08:08] LABS: ALANINE AMINOTRANSFERASE 16 U/L (12-78); ALBUMIN/GLOBULIN RATIO 0.7 (1.0-2.7); ANION GAP 12 mmol/L (5-15); ASPARTATE AMINO TRANSFERASE 20 U/L (15-37); CALCIUM 8.8 MG/DL (8.5-10.1); CARBON DIOXIDE 23 MMOL/L (21-32); CHLORIDE 108 MMOL/L (98-107); CREATININE 0.9 MG/DL (0.55-1.30); POTASSIUM 3.8 MMOL/L (3.5-5.1); SODIUM 143 MMOL/L (136-145); TOTAL PROTEIN 6.6 G/DL (6.4-8.2)
[2017-09-07] MEDS: Metoprolol Tartrate 50mg tab ORAL SCH ×2 (08:38→21:13)
[2017-09-07] MEDS: Heparin 5000 units/ml inj SUBQ SCH ×2 (08:40→21:00)
[2017-09-07 08:59] LABS: HEMOGLOBIN A1C 7.8 % (4.3-6.0)
--- NOTE | 2017-09-07 09:01 | Consultation ---
DATE OF CONSULTATION: HEMATOLOGY/ONCOLOGY CONSULTATION CONSULTING PHYSICIAN: Pratik Sexton M.D. REQUESTING PHYSICIAN: Lien Hoang M.D. REASON FOR CONSULTATION: Evaluation of thrombocytopenia. IDENTIFICATION DATA: Dear Dr. Hoang, The patient is a pleasant 76-year-old female with a past medical history, which is significant for hypertension, iron deficiency anemia, and atrial fibrillation, at this time, presents with RVR and basically is an unreliable historian, initially presented to telemetry with atrial fibrillation and rapid ventricular response. She denies any chest pain. No shortness of breath or diarrhea. Admitted for noted to be anemic. Therefore, Hematology service was consulted as well as Cardiology for evaluation and treatment. PAST MEDICAL HISTORY: Hypertension and atrial fibrillation. MEDICATIONS: Include digoxin, Cardizem, metoprolol, and anticoagulation, does not appear to be on the record. SOCIAL HISTORY: She lives in a [facility] facility. FAMILY HISTORY: Noncontributory. REVIEW OF SYSTEMS: As noted in the HPI.CONSTITUTIONAL: No fevers, chills, or night sweats. SKIN: No rashes, bumps, or itching. HEENT: No headache, hearing or vision changes. BREASTS: No lumps, pain, or discharge. PULMONARY: No cough, sputum, or shortness of breath. GASTROINTESTINAL: No nausea, vomiting, or diarrhea. GENITOURINARY: No dysuria, frequency, or urgency. MUSCULOSKELETAL: No joint swelling, muscle pain, or trauma. PHYSICAL EXAMINATION: GENERAL: The patient is in no acute distress. VITAL SIGNS: Pulse of 82, respiratory rate 20, and blood pressure . PULMONARY: Decreased breath sounds. CARDIOVASCULAR: Regular rate. No S3 or S4. ABDOMEN: Soft, nontender, and nondistended. EXTREMITIES: There is 1+ edema. LABORATORY DATA: Reviewed. IMAGING: An x-ray reveals mild posterior presents with fracture. ASSESSMENT AND RECOMMENDATIONS: 1. Thrombocytopenia. Recommend to closely monitor. If continues a down trend tomorrow consider discontinuing heparin. Also, could be secondary to be reactive process versus fluids. Administer . 2. Anemia secondary to chronic disease. 3. Hypertension, on metoprolol. 4. Ischemic changes on EKG. Nuclear stress test scheduled. 5. Status post left hip fracture. She was seen by surgical service, Dr. Iverson. 6. Atrial fibrillation, on Cardizem. Increase Lopressor. Continue digoxin. Pratik Sexton M.D. DR: ADITI JOB#: [id number] CC:
--- NOTE | 2017-09-07 10:53 | Cardiac Electrophysiology PN ---
Assessment/Plan Assessment/Plan 1. Atrial fibrillation with rapid ventricular response with evidence of ischemia. Tapered off Cardizem drip.On Lopressor 100 bid and Digoxin. Hold off on anticoagulation until the patient is cleared from orthopedic perspective. It is of note that the patient's CHADS2 score is 5 and she certainly needs long-term anticoagulation . 2. Hypertension. On metoprolol 100 bid. 3. Ischemic changes on electrocardiogram. Nuclear stress test today prior to her hip surgery. 4. Status post left hip fracture. Further evaluation by . Transfer to [facility]. Dr Carmichael Subjective Subjective In ICU off Cardizem drip in atrial fib with rate less 100. Awaiting stress test today. Objective Last 24 Hour Vital Signs Date Time Temp Pulse Resp B/P (MAP) Pulse Ox O2 Delivery O2 Flow Rate FiO2 09/07/17 09:00 88 20 139/82 99 Nasal Cannula 2.0 09/07/17 08:38 91 121/79 09/07/17 08:37 91 09/07/17 08:00 98.2 92 21 121/79 98 Nasal Cannula 2.0 09/07/17 07:56 99 Nasal Cannula 2.0 28 09/07/17 07:55 Nasal Cannula 2.0 28 09/07/17 07:00 94 16 121/79 99 Nasal Cannula 2.0 09/07/17 06:00 96 18 124/87 98 Nasal Cannula 2.0 09/07/17 05:00 101 18 137/85 99 Nasal Cannula 2.0 09/07/17 04:00 98.3 104 18 145/102 95 Nasal Cannula 2.0 09/07/17 04:00 104 09/07/17 03:00 96 18 126/82 95 Nasal Cannula 2.0 09/07/17 02:00 102 20 128/89 91 Nasal Cannula 2.0 09/07/17 01:00 98 20 130/76 91 Nasal Cannula 2.0 09/07/17 00:00 98.5 96 20 137/66 95 Nasal Cannula 2.0 09/07/17 00:00 96 09/06/17 23:00 108 20 134/88 97 Nasal Cannula 2.0 09/06/17 22:00 111 20 110/74 96 Nasal Cannula 2.0 09/06/17 21:00 118 20 134/83 98 Nasal Cannula 2.0 09/06/17 20:37 107 136/94 09/06/17 20:00 107 09/06/17 20:00 107 20 118/60 99 Nasal Cannula 2.0 09/06/17 19:30 98.3 09/06/17 19:03 Nasal Cannula 2.0 28 09/06/17 19:03 96 Nasal Cannula 2.0 28 09/06/17 19:00 111 18 119/82 96 Nasal Cannula 2.0 09/06/17 18:00 89 18 120/73 99 Nasal Cannula 2.0 09/06/17 17:00 93 18 112/78 97 Nasal Cannula 2.0 09/06/17 16:00 98.5 89 20 125/80 97 Nasal Cannula 2.0 09/06/17 16:00 92 09/06/17 15:00 98 18 122/92 97 Nasal Cannula 2.0 09/06/17 14:30 98 18 132/79 97 Nasal Cannula 2.0 09/06/17 14:00 88 20 112/79 99 Nasal Cannula 2.0 09/06/17 13:30 92 20 128/92 99 Nasal Cannula 2.0 09/06/17 13:00 90 20 131/92 99 Nasal Cannula 2.0 09/06/17 12:30 88 20 132/76 97 Nasal Cannula 2.0 09/06/17 12:00 86 09/06/17 12:00 98.1 89 18 122/64 98 Nasal Cannula 2.0 09/06/17 11:30 88 18 112/86 98 Nasal Cannula 2.0 09/06/17 11:00 82 18 124/86 98 Nasal Cannula 2.0 Intake and Output 09/07/17 09/08/17 19:00 07:00 Intake Total 50 ml Balance 50 ml Intake Oral 0 ml IV Total 50 ml Laboratory Tests Test 09/07/17 05:20 White Blood Count 7.6 K/UL (4.8-10.8) Red Blood Count 3.75 M/UL (4.20-5.40) L Hemoglobin 12.6 G/DL (12.0-16.0) Hematocrit 36.8 % (37.0-47.0) L Mean Corpuscular Volume 98 FL (80-99) Mean Corpuscular Hemoglobin 33.6 PG (27.0-31.0) H Mean Corpuscular Hemoglobin Concent 34.3 G/DL (32.0-36.0) Red Cell Distribution Width 12.4 % (11.6-14.8) Platelet Count 156 K/UL (150-450) Mean Platelet Volume 7.8 FL (6.5-10.1) Neutrophils (%) (Auto) 76.9 % (45.0-75.0) H Lymphocytes (%) (Auto) 13.9 % (20.0-45.0) L Monocytes (%) (Auto) 7.8 % (1.0-10.0) Eosinophils (%) (Auto) 0.9 % (0.0-3.0) Basophils (%) (Auto) 0.5 % (0.0-2.0) Sodium Level 143 MMOL/L (136-145) Potassium Level 3.8 MMOL/L (3.5-5.1) Chloride Level 108 MMOL/L (98-107) H Carbon Dioxide Level 23 MMOL/L (21-32) Anion Gap 12 mmol/L (5-15) Blood Urea Nitrogen 14 mg/dL (7-18) Creatinine 0.9 MG/DL (0.55-1.30) Estimat Glomerular Filtration Rate mL/min (>60) Glucose Level 117 MG/DL (74-106) H Hemoglobin A1c 7.8 % (4.3-6.0) H Uric Acid 5.5 MG/DL (2.6-7.2) Calcium Level 8.8 MG/DL (8.5-10.1) Phosphorus Level 2.6 MG/DL (2.5-4.9) Magnesium Level 1.9 MG/DL (1.8-2.4) Iron Level 22 ug/dL (50-175) L Total Iron Binding Capacity 209 ug/dL (250-450) L Percent Iron Saturation 11 % (15-50) L Unsaturated Iron Binding 187 ug/dL (112-346) Ferritin 261 NG/ML (8-388) Total Bilirubin 0.9 MG/DL (0.2-1.0) Gamma Glutamyl Transpeptidase 36 U/L (5-85) Aspartate Amino Transf (AST/SGOT) 20 U/L (15-37) Alanine Aminotransferase (ALT/SGPT) 16 U/L (12-78) Alkaline Phosphatase 58 U/L (46-116) Total Creatine Kinase 145 U/L (26-308) Troponin I 0.018 ng/mL (0.000-0.056) C-Reactive Protein, Quantitative 18.1 mg/dL (0.00-0.90) H Pro-B-Type Natriuretic Peptide 5736 pg/mL (0-125) H Total Protein 6.6 G/DL (6.4-8.2) Albumin 2.7 G/DL (3.4-5.0) L Globulin 3.9 g/dL Albumin/Globulin Ratio 0.7 (1.0-2.7) L Triglycerides Level 112 MG/DL (0-200) Cholesterol Level 201 MG/DL (< 200) H LDL Cholesterol 123 mg/dL (<100) H HDL Cholesterol 68 MG/DL (40-60) H Cholesterol/HDL Ratio 3.0 (3.3-4.4) L Vitamin B12 Level 372 PG/ML (193-986) Folate 14.3 NG/ML (3.1-17.5) Thyroid Stimulating Hormone (TSH) 1.280 uiU/mL (0.360-3.740) Microbiology Date/Time Source Procedure Growth Status 09/05/17 00:35 Blood Blood Culture - Preliminary NO GROWTH AFTER 48 HOURS Resulted 09/05/17 00:30 Blood Blood Culture - Preliminary NO GROWTH AFTER 48 HOURS Resulted 09/05/17 02:36 Nasal Nares MRSA Culture - Final NO METHICILLIN RESISTANT STAPH AUREUS... Complete 09/05/17 01:20 Urine,Clean Catch Urine Culture - Final Escherichia Coli Complete Objective HEAD AND NECK: Shows no JVD. LUNGS: Clear. CARDIOVASCULAR: Irregularly irregular. S1 and S2, with no gallop or murmur. ABDOMEN: Soft. EXTREMITIES: Left hip tenderness with rotation of left hip. ANIYA SMITH Sep 07, 2017 10:53
--- NOTE | 2017-09-07 12:09 | General Progress Note ---
Assessment/Plan Assessment/Plan ASSESSMENT AND RECOMMENDATIONS: 1. Thrombocytopenia. Resolved. 2. Anemia secondary to chronic disease. 3. Hypertension, on metoprolol. 4. Ischemic changes on EKG. Nuclear stress test scheduled. 5. Status post left hip fracture. She was seen by surgical service, Dr. Iverson. 6. Atrial fibrillation, on Cardizem. Increase Lopressor. Continue digoxin. Subjective ROS Limited/Unobtainable: Yes Allergies: Coded Allergies: No Known Allergies (Unverified , 09/05/17) Objective Last 24 Hour Vital Signs Date Time Temp Pulse Resp B/P (MAP) Pulse Ox O2 Delivery O2 Flow Rate FiO2 09/07/17 11:00 85 20 131/93 99 Nasal Cannula 2.0 09/07/17 10:00 76 20 142/93 98 Nasal Cannula 2.0 09/07/17 09:00 88 20 139/82 99 Nasal Cannula 2.0 09/07/17 08:38 91 121/79 09/07/17 08:37 91 09/07/17 08:00 98.2 92 21 121/79 98 Nasal Cannula 2.0 09/07/17 07:56 99 Nasal Cannula 2.0 28 09/07/17 07:55 Nasal Cannula 2.0 28 09/07/17 07:00 94 16 121/79 99 Nasal Cannula 2.0 09/07/17 06:00 96 18 124/87 98 Nasal Cannula 2.0 09/07/17 05:00 101 18 137/85 99 Nasal Cannula 2.0 09/07/17 04:00 98.3 104 18 145/102 95 Nasal Cannula 2.0 09/07/17 04:00 104 09/07/17 03:00 96 18 126/82 95 Nasal Cannula 2.0 09/07/17 02:00 102 20 128/89 91 Nasal Cannula 2.0 09/07/17 01:00 98 20 130/76 91 Nasal Cannula 2.0 09/07/17 00:00 98.5 96 20 137/66 95 Nasal Cannula 2.0 09/07/17 00:00 96 09/06/17 23:00 108 20 134/88 97 Nasal Cannula 2.0 09/06/17 22:00 111 20 110/74 96 Nasal Cannula 2.0 09/06/17 21:00 118 20 134/83 98 Nasal Cannula 2.0 09/06/17 20:37 107 136/94 09/06/17 20:00 107 09/06/17 20:00 107 20 118/60 99 Nasal Cannula 2.0 09/06/17 19:30 98.3 09/06/17 19:03 Nasal Cannula 2.0 28 09/06/17 19:03 96 Nasal Cannula 2.0 28 09/06/17 19:00 111 18 119/82 96 Nasal Cannula 2.0 09/06/17 18:00 89 18 120/73 99 Nasal Cannula 2.0 09/06/17 17:00 93 18 112/78 97 Nasal Cannula 2.0 09/06/17 16:00 98.5 89 20 125/80 97 Nasal Cannula 2.0 09/06/17 16:00 92 09/06/17 15:00 98 18 122/92 97 Nasal Cannula 2.0 09/06/17 14:30 98 18 132/79 97 Nasal Cannula 2.0 09/06/17 14:00 88 20 112/79 99 Nasal Cannula 2.0 09/06/17 13:30 92 20 128/92 99 Nasal Cannula 2.0 09/06/17 13:00 90 20 131/92 99 Nasal Cannula 2.0 09/06/17 12:30 88 20 132/76 97 Nasal Cannula 2.0 Intake and Output 09/07/17 09/08/17 19:00 07:00 Intake Total 50 ml Balance 50 ml Intake Oral 0 ml IV Total 50 ml Laboratory Tests 09/07/17 05:20: White Blood Count 7.6, Red Blood Count 3.75L, Hemoglobin 12.6, Hematocrit 36.8L , Mean Corpuscular Volume 98, Mean Corpuscular Hemoglobin 33.6H, Mean Corpuscular Hemoglobin Concent 34.3, Red Cell Distribution Width 12.4, Platelet Count 156, Mean Platelet Volume 7.8, Neutrophils (%) (Auto) 76.9H, Lymphocytes ( %) (Auto) 13.9L, Monocytes (%) (Auto) 7.8, Eosinophils (%) (Auto) 0.9, Basophils (%) (Auto) 0.5, Sodium Level 143, Potassium Level 3.8, Chloride Level 108H, Carbon Dioxide Level 23, Anion Gap 12, Blood Urea Nitrogen 14, Creatinine 0.9, Estimat Glomerular Filtration Rate , Glucose Level 117H, Hemoglobin A1c 7.8H, Uric Acid 5.5, Calcium Level 8.8, Phosphorus Level 2.6, Magnesium Level 1.9, Iron Level 22L, Total Iron Binding Capacity 209L, Percent Iron Saturation 11L, Unsaturated Iron Binding 187, Ferritin 261, Total Bilirubin 0.9, Gamma Glutamyl Transpeptidase 36, Aspartate Amino Transf (AST/SGOT) 20, Alanine Aminotransferase (ALT/SGPT) 16, Alkaline Phosphatase 58, Total Creatine Kinase 145, Troponin I 0.018, C-Reactive Protein, Quantitative 18.1H, Pro-B-Type Natriuretic Peptide 5736H, Total Protein 6.6, Albumin 2.7L, Globulin 3.9, Albumin/Globulin Ratio 0.7L, Triglycerides Level 112, Cholesterol Level 201H, LDL Cholesterol 123H, HDL Cholesterol 68H, Cholesterol/HDL Ratio 3.0L, Vitamin B12 Level 372, Folate 14.3, Thyroid Stimulating Hormone (TSH) 1.280 Height (Feet): 5 Height (Inches): 1.00 Weight (Pounds): 148 General Appearance: lethargic, confused EENT: TMs normal Neck: normal inspection Respiratory/Chest: decreased breath sounds Extremities: non-tender Pratik Sexton Sep 07, 2017 12:09
--- NOTE | 2017-09-07 15:13 | Anethesia Preoperative Eval ---
Anesthesia Pre-op PMH/ROS General Date of Evaluation: Sep 07, 2017 Time of Evaluation: 18:27 Anesthesiologist: Pablo ASA Score: ASA 3 Mallampati Score Class I : Soft palate, uvula, fauces, pillars visible Class II: Soft palate, uvula, fauces visible Class III: Soft palate, base of uvula visible Class IV: Only hard plate visible Mallampati Classification: Class II Surgeon: Kishor Diagnosis: L Hip Femoral Neck Fx Surgical Procedure: ORIF L Hip Femoral Neck Fx Anesthesia History: none Family History: no anesthesia problems Allergies: Coded Allergies: No Known Allergies (Unverified , 09/05/17) Medications: see eMAR Past Medical History Cardiovascular: Reports: HTN, arrhythmia - Atrial Fib with RVR Neurologic/Psychiatric: Reports: dementia - Alzheimers, CVA Endocrine: Reports: DM Hematology/Immune: Reports: anemia Anesthesia Pre-op Phys. Exam Physician Exam Last Vital Signs Date Time Temp Pulse Resp B/P (MAP) Pulse Ox O2 Delivery O2 Flow Rate FiO2 09/07/17 14:51 96.8 83 134/88 Nasal Cannula 2.0 09/07/17 14:00 20 98 09/07/17 07:56 28 Constitutional: NAD Neurologic: CN 2-12 intact Cardiovascular: RRR Respiratory: CTA Gastrointestinal: S/NT/ND Airway Exam Mallampati Score: Class II MO: limited ROM: limited Teeth: missing Anesthesia Pre-op A/P Labs Hematology Test 09/07/17 05:20 White Blood Count 7.6 K/UL (4.8-10.8) Red Blood Count 3.75 M/UL (4.20-5.40) L Hemoglobin 12.6 G/DL (12.0-16.0) Hematocrit 36.8 % (37.0-47.0) L Mean Corpuscular Volume 98 FL (80-99) Mean Corpuscular Hemoglobin 33.6 PG (27.0-31.0) H Mean Corpuscular Hemoglobin Concent 34.3 G/DL (32.0-36.0) Red Cell Distribution Width 12.4 % (11.6-14.8) Platelet Count 156 K/UL (150-450) Mean Platelet Volume 7.8 FL (6.5-10.1) Neutrophils (%) (Auto) 76.9 % (45.0-75.0) H Lymphocytes (%) (Auto) 13.9 % (20.0-45.0) L Monocytes (%) (Auto) 7.8 % (1.0-10.0) Eosinophils (%) (Auto) 0.9 % (0.0-3.0) Basophils (%) (Auto) 0.5 % (0.0-2.0) Chemistry Test 09/07/17 05:20 Sodium Level 143 MMOL/L (136-145) Potassium Level 3.8 MMOL/L (3.5-5.1) Chloride Level 108 MMOL/L (98-107) H Carbon Dioxide Level 23 MMOL/L (21-32) Anion Gap 12 mmol/L (5-15) Blood Urea Nitrogen 14 mg/dL (7-18) Creatinine 0.9 MG/DL (0.55-1.30) Estimat Glomerular Filtration Rate mL/min (>60) Glucose Level 117 MG/DL (74-106) H Hemoglobin A1c 7.8 % (4.3-6.0) H Uric Acid 5.5 MG/DL (2.6-7.2) Calcium Level 8.8 MG/DL (8.5-10.1) Phosphorus Level 2.6 MG/DL (2.5-4.9) Magnesium Level 1.9 MG/DL (1.8-2.4) Iron Level 22 ug/dL (50-175) L Total Iron Binding Capacity 209 ug/dL (250-450) L Percent Iron Saturation 11 % (15-50) L Unsaturated Iron Binding 187 ug/dL (112-346) Ferritin 261 NG/ML (8-388) Total Bilirubin 0.9 MG/DL (0.2-1.0) Gamma Glutamyl Transpeptidase 36 U/L (5-85) Aspartate Amino Transf (AST/SGOT) 20 U/L (15-37) Alanine Aminotransferase (ALT/SGPT) 16 U/L (12-78) Alkaline Phosphatase 58 U/L (46-116) Total Creatine Kinase 145 U/L (26-308) Troponin I 0.018 ng/mL (0.000-0.056) C-Reactive Protein, Quantitative 18.1 mg/dL (0.00-0.90) H Pro-B-Type Natriuretic Peptide 5736 pg/mL (0-125) H Total Protein 6.6 G/DL (6.4-8.2) Albumin 2.7 G/DL (3.4-5.0) L Globulin 3.9 g/dL Albumin/Globulin Ratio 0.7 (1.0-2.7) L Triglycerides Level 112 MG/DL (0-200) Cholesterol Level 201 MG/DL (< 200) H LDL Cholesterol 123 mg/dL (<100) H HDL Cholesterol 68 MG/DL (40-60) H Cholesterol/HDL Ratio 3.0 (3.3-4.4) L Vitamin B12 Level 372 PG/ML (193-986) Folate 14.3 NG/ML (3.1-17.5) Thyroid Stimulating Hormone (TSH) 1.280 uiU/mL (0.360-3.740) Risk Assessment & Plan Assessment: ASA 3 Plan: GA vs Spinal Status Change Before Surgery: No Pre-Antibiotics Drug: Pérez Urena MD Sep 07, 2017 15:13
[2017-09-07] MEDS ORDERED: Tubing IV Secondary IV ONE (16:20)
--- NOTE | 2017-09-07 17:17 | General Progress Note ---
Assessment/Plan Status: stable - from renal stand Assessment/Plan status: UTI start Rocephin Low K- PO supplement At fib in ICU on Cardiazem drip HTN adjust meds Ischemia in EKG Lt hip Fx Echo: Left ventricular ejection fraction estimated to be 50- 55 %. Mild left ventricular hypertrophy. Plan: Rocephin for UTI PO K as needed Gastric support monitor lytes and H&H and renal parameters per orders- per consultants Subjective ROS Limited/Unobtainable: No Constitutional: Reports: malaise Allergies: Coded Allergies: No Known Allergies (Unverified , 09/05/17) Objective Last 24 Hour Vital Signs Date Time Temp Pulse Resp B/P (MAP) Pulse Ox O2 Delivery O2 Flow Rate FiO2 09/07/17 16:00 75 09/07/17 16:00 97.2 91 21 138/85 97 Nasal Cannula 2.0 09/07/17 14:51 96.8 83 134/88 Nasal Cannula 2.0 09/07/17 14:00 77 20 157/76 98 Nasal Cannula 2.0 09/07/17 13:00 103 20 167/93 97 Nasal Cannula 2.0 09/07/17 12:00 96 09/07/17 12:00 98.2 81 21 158/118 98 Nasal Cannula 2.0 09/07/17 11:00 85 20 131/93 99 Nasal Cannula 2.0 09/07/17 10:00 76 20 142/93 98 Nasal Cannula 2.0 09/07/17 09:00 88 20 139/82 99 Nasal Cannula 2.0 09/07/17 08:38 91 121/79 09/07/17 08:37 91 09/07/17 08:00 98.2 92 21 121/79 98 Nasal Cannula 2.0 09/07/17 08:00 92 09/07/17 07:56 99 Nasal Cannula 2.0 28 09/07/17 07:55 Nasal Cannula 2.0 28 09/07/17 07:00 94 16 121/79 99 Nasal Cannula 2.0 09/07/17 06:00 96 18 124/87 98 Nasal Cannula 2.0 09/07/17 05:00 101 18 137/85 99 Nasal Cannula 2.0 09/07/17 04:00 98.3 104 18 145/102 95 Nasal Cannula 2.0 09/07/17 04:00 104 09/07/17 03:00 96 18 126/82 95 Nasal Cannula 2.0 09/07/17 02:00 102 20 128/89 91 Nasal Cannula 2.0 09/07/17 01:00 98 20 130/76 91 Nasal Cannula 2.0 09/07/17 00:00 98.5 96 20 137/66 95 Nasal Cannula 2.0 09/07/17 00:00 96 09/06/17 23:00 108 20 134/88 97 Nasal Cannula 2.0 09/06/17 22:00 111 20 110/74 96 Nasal Cannula 2.0 09/06/17 21:00 118 20 134/83 98 Nasal Cannula 2.0 09/06/17 20:37 107 136/94 09/06/17 20:00 107 09/06/17 20:00 107 20 118/60 99 Nasal Cannula 2.0 09/06/17 19:30 98.3 09/06/17 19:03 Nasal Cannula 2.0 28 09/06/17 19:03 96 Nasal Cannula 2.0 28 09/06/17 19:00 111 18 119/82 96 Nasal Cannula 2.0 09/06/17 18:00 89 18 120/73 99 Nasal Cannula 2.0 Intake and Output 09/07/17 09/08/17 19:00 07:00 Intake Total 160 ml Output Total 405 ml Balance -245 ml Intake Oral 60 ml IV Total 100 ml Output Urine Total 405 ml Laboratory Tests 09/07/17 05:20: White Blood Count 7.6, Red Blood Count 3.75L, Hemoglobin 12.6, Hematocrit 36.8L , Mean Corpuscular Volume 98, Mean Corpuscular Hemoglobin 33.6H, Mean Corpuscular Hemoglobin Concent 34.3, Red Cell Distribution Width 12.4, Platelet Count 156, Mean Platelet Volume 7.8, Neutrophils (%) (Auto) 76.9H, Lymphocytes ( %) (Auto) 13.9L, Monocytes (%) (Auto) 7.8, Eosinophils (%) (Auto) 0.9, Basophils (%) (Auto) 0.5, Sodium Level 143, Potassium Level 3.8, Chloride Level 108H, Carbon Dioxide Level 23, Anion Gap 12, Blood Urea Nitrogen 14, Creatinine 0.9, Estimat Glomerular Filtration Rate , Glucose Level 117H, Hemoglobin A1c 7.8H, Uric Acid 5.5, Calcium Level 8.8, Phosphorus Level 2.6, Magnesium Level 1.9, Iron Level 22L, Total Iron Binding Capacity 209L, Percent Iron Saturation 11L, Unsaturated Iron Binding 187, Ferritin 261, Total Bilirubin 0.9, Gamma Glutamyl Transpeptidase 36, Aspartate Amino Transf (AST/SGOT) 20, Alanine Aminotransferase (ALT/SGPT) 16, Alkaline Phosphatase 58, Total Creatine Kinase 145, Troponin I 0.018, C-Reactive Protein, Quantitative 18.1H, Pro-B-Type Natriuretic Peptide 5736H, Total Protein 6.6, Albumin 2.7L, Globulin 3.9, Albumin/Globulin Ratio 0.7L, Triglycerides Level 112, Cholesterol Level 201H, LDL Cholesterol 123H, HDL Cholesterol 68H, Cholesterol/HDL Ratio 3.0L, Vitamin B12 Level 372, Folate 14.3, Thyroid Stimulating Hormone (TSH) 1.280 Height (Feet): 5 Height (Inches): 1.00 Weight (Pounds): 148 General Appearance: no apparent distress Cardiovascular: arrhythmia Abdomen: soft FREDY DASH Sep 07, 2017 17:17
--- NOTE | 2017-09-07 17:48 | General Progress Note ---
Assessment/Plan Problem List: (1) A-fib ICD Codes: I48.91 - Unspecified atrial fibrillation SNOMED: 24722124 (2) Femur fracture, left ICD Codes: S72.92XA - Unspecified fracture of left femur, initial encounter for closed fracture SNOMED: 87239391 (3) Atrial fibrillation ICD Codes: I48.91 - Unspecified atrial fibrillation SNOMED: 35746652 (4) Femoral neck fracture ICD Codes: S72.009A - Fracture of unspecified part of neck of unspecified femur , initial encounter for closed fracture SNOMED: 8231238 (5) Atrial fibrillation with RVR ICD Codes: I48.91 - Unspecified atrial fibrillation SNOMED: 190105071905293 Status: progressing Assessment/Plan a fib w rvr femure neck fracture hr improved orif per ortho reviewed chart and labs Subjective ROS Limited/Unobtainable: Yes Constitutional: Reports: no symptoms Allergies: Coded Allergies: No Known Allergies (Unverified , 09/05/17) Subjective pain at hip Objective Last 24 Hour Vital Signs Date Time Temp Pulse Resp B/P (MAP) Pulse Ox O2 Delivery O2 Flow Rate FiO2 09/07/17 16:00 75 09/07/17 16:00 97.2 91 21 138/85 97 Nasal Cannula 2.0 09/07/17 14:51 96.8 83 134/88 Nasal Cannula 2.0 09/07/17 14:00 77 20 157/76 98 Nasal Cannula 2.0 09/07/17 13:00 103 20 167/93 97 Nasal Cannula 2.0 09/07/17 12:00 96 09/07/17 12:00 98.2 81 21 158/118 98 Nasal Cannula 2.0 09/07/17 11:00 85 20 131/93 99 Nasal Cannula 2.0 09/07/17 10:00 76 20 142/93 98 Nasal Cannula 2.0 09/07/17 09:00 88 20 139/82 99 Nasal Cannula 2.0 09/07/17 08:38 91 121/79 09/07/17 08:37 91 09/07/17 08:00 98.2 92 21 121/79 98 Nasal Cannula 2.0 09/07/17 08:00 92 09/07/17 07:56 99 Nasal Cannula 2.0 28 09/07/17 07:55 Nasal Cannula 2.0 28 09/07/17 07:00 94 16 121/79 99 Nasal Cannula 2.0 09/07/17 06:00 96 18 124/87 98 Nasal Cannula 2.0 09/07/17 05:00 101 18 137/85 99 Nasal Cannula 2.0 09/07/17 04:00 98.3 104 18 145/102 95 Nasal Cannula 2.0 09/07/17 04:00 104 09/07/17 03:00 96 18 126/82 95 Nasal Cannula 2.0 09/07/17 02:00 102 20 128/89 91 Nasal Cannula 2.0 09/07/17 01:00 98 20 130/76 91 Nasal Cannula 2.0 09/07/17 00:00 98.5 96 20 137/66 95 Nasal Cannula 2.0 09/07/17 00:00 96 09/06/17 23:00 108 20 134/88 97 Nasal Cannula 2.0 09/06/17 22:00 111 20 110/74 96 Nasal Cannula 2.0 09/06/17 21:00 118 20 134/83 98 Nasal Cannula 2.0 09/06/17 20:37 107 136/94 09/06/17 20:00 107 09/06/17 20:00 107 20 118/60 99 Nasal Cannula 2.0 09/06/17 19:30 98.3 09/06/17 19:03 Nasal Cannula 2.0 28 09/06/17 19:03 96 Nasal Cannula 2.0 28 09/06/17 19:00 111 18 119/82 96 Nasal Cannula 2.0 09/06/17 18:00 89 18 120/73 99 Nasal Cannula 2.0 Intake and Output 09/07/17 09/08/17 19:00 07:00 Intake Total 210 ml Output Total 405 ml Balance -195 ml Intake Oral 60 ml IV Total 150 ml Output Urine Total 405 ml Laboratory Tests 09/07/17 05:20: White Blood Count 7.6, Red Blood Count 3.75L, Hemoglobin 12.6, Hematocrit 36.8L , Mean Corpuscular Volume 98, Mean Corpuscular Hemoglobin 33.6H, Mean Corpuscular Hemoglobin Concent 34.3, Red Cell Distribution Width 12.4, Platelet Count 156, Mean Platelet Volume 7.8, Neutrophils (%) (Auto) 76.9H, Lymphocytes ( %) (Auto) 13.9L, Monocytes (%) (Auto) 7.8, Eosinophils (%) (Auto) 0.9, Basophils (%) (Auto) 0.5, Sodium Level 143, Potassium Level 3.8, Chloride Level 108H, Carbon Dioxide Level 23, Anion Gap 12, Blood Urea Nitrogen 14, Creatinine 0.9, Estimat Glomerular Filtration Rate , Glucose Level 117H, Hemoglobin A1c 7.8H, Uric Acid 5.5, Calcium Level 8.8, Phosphorus Level 2.6, Magnesium Level 1.9, Iron Level 22L, Total Iron Binding Capacity 209L, Percent Iron Saturation 11L, Unsaturated Iron Binding 187, Ferritin 261, Total Bilirubin 0.9, Gamma Glutamyl Transpeptidase 36, Aspartate Amino Transf (AST/SGOT) 20, Alanine Aminotransferase (ALT/SGPT) 16, Alkaline Phosphatase 58, Total Creatine Kinase 145, Troponin I 0.018, C-Reactive Protein, Quantitative 18.1H, Pro-B-Type Natriuretic Peptide 5736H, Total Protein 6.6, Albumin 2.7L, Globulin 3.9, Albumin/Globulin Ratio 0.7L, Triglycerides Level 112, Cholesterol Level 201H, LDL Cholesterol 123H, HDL Cholesterol 68H, Cholesterol/HDL Ratio 3.0L, Vitamin B12 Level 372, Folate 14.3, Thyroid Stimulating Hormone (TSH) 1.280 Height (Feet): 5 Height (Inches): 1.00 Weight (Pounds): 148 Neck: supple Cardiovascular: normal rate Respiratory/Chest: lungs clear Lien Hoang MD Sep 07, 2017 17:48
[2017-09-07] MEDS: cefTRIAXone 1 GM in D5W 55 ML IVPB SCH (22:33)
[2017-09-08] VITALS (16 sets, daily range): BP systolic 120–156; BP diastolic 76–111
[2017-09-08 07:53] LABS: BASOPHILS % (AUTO) 0.7 % (0.0-2.0); EOSINOPHILS % (AUTO) 1.8 % (0.0-3.0); LYMPHOCYTES % (AUTO) 18.9 % (20.0-45.0); MEAN CORPUSCULAR HEMOGLOBIN 32.9 PG (27.0-31.0); MEAN CORPUSCULAR HGB CONC 33.7 G/DL (32.0-36.0); MEAN CORPUSCULAR VOLUME 97 FL (80-99); MEAN PLATELET VOLUME 7.4 FL (6.5-10.1); MONOCYTES % (AUTO) 8.8 % (1.0-10.0); NEUTROPHILS % (AUTO) 69.8 % (45.0-75.0); PLATELET COUNT 160 K/UL (150-450); RED BLOOD COUNT 3.99 M/UL (4.20-5.40); RED CELL DISTRIBUTION WIDTH 12.1 % (11.6-14.8); WHITE BLOOD COUNT 6.9 K/UL (4.8-10.8)
[2017-09-08 08:26] LABS: ALANINE AMINOTRANSFERASE 14 U/L (12-78); ALBUMIN/GLOBULIN RATIO 0.7 (1.0-2.7); ANION GAP 9 mmol/L (5-15); ASPARTATE AMINO TRANSFERASE 17 U/L (15-37); CALCIUM 8.4 MG/DL (8.5-10.1); CARBON DIOXIDE 27 MMOL/L (21-32); CHLORIDE 106 MMOL/L (98-107); CREATININE 0.8 MG/DL (0.55-1.30); POTASSIUM 3.2 MMOL/L (3.5-5.1); SODIUM 141 MMOL/L (136-145); TOTAL PROTEIN 6.3 G/DL (6.4-8.2)
--- NOTE | 2017-09-08 09:21 | Diagnostic Imaging Report ---
Indication: 76-year-old female with chest pain Technique: Resting cardiac SPECT images obtained with IV injection of 9.8 mCi 99 technetium Myoview. SPECT images obtained. No poststress images obtained, a stress test was canceled by the referring physician Comparison: None Findings: There is vague diffuse decreased perfusion in the anterior wall. Left ventricle is somewhat dilated. Impression: Vague decreased perfusion in the anterior wall. Suspect on the basis of soft tissue attenuation artifact, but given presence of cardiomegaly, findings also represent an anterior infarct. Unable to assess for presence or absence of ischemia, given lack of poststress imaging
[2017-09-08] MEDS: Heparin 5000 units/ml inj SUBQ SCH (09:59)
[2017-09-08] MEDS: Metoprolol Tartrate 50mg tab ORAL SCH ×2 (10:09→21:47)
--- NOTE | 2017-09-08 11:11 | General Progress Note ---
Assessment/Plan Problem List: (1) A-fib ICD Codes: I48.91 - Unspecified atrial fibrillation SNOMED: 17163136 (2) Femur fracture, left ICD Codes: S72.92XA - Unspecified fracture of left femur, initial encounter for closed fracture SNOMED: 90077635 (3) Atrial fibrillation ICD Codes: I48.91 - Unspecified atrial fibrillation SNOMED: 61315883 (4) Femoral neck fracture ICD Codes: S72.009A - Fracture of unspecified part of neck of unspecified femur , initial encounter for closed fracture SNOMED: 9711959 (5) Atrial fibrillation with RVR ICD Codes: I48.91 - Unspecified atrial fibrillation SNOMED: 924460857939201 Status: progressing Assessment/Plan a fib w rvr femure neck fracture heart rate is improving orif per ortho reviewed chart afebrile Subjective ROS Limited/Unobtainable: Yes Allergies: Coded Allergies: No Known Allergies (Unverified , 09/05/17) Subjective pain at hip Objective Last 24 Hour Vital Signs Date Time Temp Pulse Resp B/P (MAP) Pulse Ox O2 Delivery O2 Flow Rate FiO2 09/08/17 10:09 105 145/93 09/08/17 10:09 105 09/08/17 08:08 Nasal Cannula 2.0 28 09/08/17 08:07 97 Nasal Cannula 2.0 28 09/08/17 08:00 98.4 105 18 145/93 98 Room Air 09/08/17 08:00 99 09/08/17 04:48 97.2 89 16 156/96 96 Nasal Cannula 2.0 09/08/17 04:00 94 09/08/17 01:10 96.6 70 16 147/111 97 Nasal Cannula 2.0 09/08/17 00:00 96.6 70 16 147/111 97 Nasal Cannula 2.0 09/08/17 00:00 94 09/07/17 21:13 71 131/76 09/07/17 21:00 Nasal Cannula 2.0 28 09/07/17 21:00 98 Nasal Cannula 2.0 28 09/07/17 20:00 96.8 71 16 131/76 99 Nasal Cannula 2.0 09/07/17 20:00 82 09/07/17 16:00 75 09/07/17 16:00 97.2 91 21 138/85 97 Nasal Cannula 2.0 09/07/17 14:51 96.8 83 134/88 Nasal Cannula 2.0 09/07/17 14:00 77 20 157/76 98 Nasal Cannula 2.0 09/07/17 13:00 103 20 167/93 97 Nasal Cannula 2.0 09/07/17 12:00 96 09/07/17 12:00 98.2 81 21 158/118 98 Nasal Cannula 2.0 Intake and Output 09/08/17 09/09/17 19:00 07:00 Intake Total 50 ml Balance 50 ml IV Total 50 ml Laboratory Tests 09/08/17 06:55: White Blood Count 6.9, Red Blood Count 3.99L, Hemoglobin 13.1, Hematocrit 38.8, Mean Corpuscular Volume 97, Mean Corpuscular Hemoglobin 32.9H, Mean Corpuscular Hemoglobin Concent 33.7, Red Cell Distribution Width 12.1, Platelet Count 160, Mean Platelet Volume 7.4, Neutrophils (%) (Auto) 69.8, Lymphocytes (%) (Auto) 18.9L, Monocytes (%) (Auto) 8.8, Eosinophils (%) (Auto) 1.8, Basophils (%) (Auto ) 0.7, Sodium Level 141, Potassium Level 3.2L, Chloride Level 106, Carbon Dioxide Level 27, Anion Gap 9, Blood Urea Nitrogen 13, Creatinine 0.8, Estimat Glomerular Filtration Rate , Glucose Level 100, Calcium Level 8.4L, Total Bilirubin 0.7, Aspartate Amino Transf (AST/SGOT) 17, Alanine Aminotransferase ( ALT/SGPT) 14, Alkaline Phosphatase 56, Total Protein 6.3L, Albumin 2.5L, Globulin 3.8, Albumin/Globulin Ratio 0.7L Height (Feet): 5 Height (Inches): 1.00 Weight (Pounds): 149 Cardiovascular: regularly irregular Respiratory/Chest: lungs clear Lien Hoang MD Sep 08, 2017 11:11
[2017-09-08] MEDS ORDERED: Bacitracin 50000 Units Vial ONE (12:20)
[2017-09-08] MEDS ORDERED: NeoSporin Gu Irrig 1ml Amp IRRIG ONE (12:20)
[2017-09-08] MEDS ORDERED: Propofol 200mg/20ml IV ONE (12:36)
[2017-09-08] MEDS ORDERED: Duramorph PF 5mg/10ml amp ONE (12:36)
[2017-09-08] MEDS ORDERED: ceFAZolin 1gm/50ml Premix 50 ML IV ONE (12:37)
[2017-09-08] MEDS ORDERED: Bupivacaine 0.25% Inj 30ml INJ ONE (12:37)
--- NOTE | 2017-09-08 12:58 | Pre-Procedure Note/Attestation ---
Pre-Procedure Note/Attestation Complete Prior to Procedure Planned Procedure: left Procedure Narrative: left hip garrett arthroplasty Indications for Procedure Pre-Operative Diagnosis: left hip femoral neck fracture Attestation I attest that I discussed the nature of the procedure; its benefits; risks and complications; and alternatives (and the risks and benefits of such alternatives ), prior to the procedure, with the patient (or the patient's legal traffic representative). I attest that, if there was a reasonable possibility of needing a blood transfusion, the patient (or the patient's legal traffic representative) was given the [facility] standardized written summary, pursuant to the Kobi Dagoberto Blood Safety Act ([place] Health and Safety Code # 1645, as amended). I attest that I re-evaluated the patient just prior to the surgery and that there has been no change in the patient's H&P, except as documented below: none CLEVE DONAHUE Sep 08, 2017 12:58
[2017-09-08] MEDS: D5 1/2NS w/KCl 20mEq 1,000 ML IV SCH (13:09)
[2017-09-08] MEDS ORDERED: Bupivacaine 0.5% Inj 30 ml vial INJ ONE (13:10)
[2017-09-08] MEDS ORDERED: Norco 7.5mg/325mg tab ORAL PRN (13:15)
[2017-09-08] MEDS ORDERED: HYDROmorphone 1mg/ml Carpuject SUBQ PRN (13:15)
[2017-09-08] MEDS ORDERED: Sterile Water Irrig 1000ml IRRIG ONE (13:30)
[2017-09-08] MEDS ORDERED: NS Irrig 1000ml ONE (13:30)
[2017-09-08] MEDS ORDERED: Midazolam 2mg/2ml Inj ONE (13:30)
[2017-09-08] MEDS ORDERED: Metoprolol 5mg/5ml Inj ONE (13:30)
[2017-09-08] MEDS ORDERED: NS Irrig 2000ml IRRIG ONE (13:30)
[2017-09-08] MEDS ORDERED: LR 1000ml ONE (13:30)
[2017-09-08] MEDS ORDERED: fentaNYL 100 mcg/2 mL IV ONE (13:30)
[2017-09-08] MEDS ORDERED: Tranexamic Acid 1,000 MG in NS 65 ML IVPB ONE (14:00)
[2017-09-08] MEDS ORDERED: LR 1000ml 1,000 ML IVLG SCH (14:31)
[2017-09-08] MEDS ORDERED: Ketorolac 30mg Inj IV PRN (14:45)
[2017-09-08] MEDS ORDERED: DiphenhydrAMINE 50mg/ml Inj IVP PRN (14:45)
[2017-09-08] MEDS ORDERED: Midazolam 2mg/2ml Inj IVP PRN (14:45)
[2017-09-08] MEDS ORDERED: Hydromorphone 0.5mg/0.5ml inj IVP PRN (14:45)
--- NOTE | 2017-09-08 15:14 | Brief Operative Note ---
Immediate Post Operative Note Operative Note Chief Complaint: left hip fracture Pre-op Diagnosis: left hip femoral neck fracture Procedure: left hip hemiarthroplasty Post-op Diagnosis: same as pre-op Findings: consistent w/pre-op dx studies Surgeon: md erendira Prosthetics Lab Technician: sommer galvan Anesthesiologist: md nubia Anesthesia: general Specimen: yes Complications: none Condition: stable Fluids: ns Estimated Blood Loss: minimal Drains: none Implant(s) used?: Yes - IRINA Serrato Sep 08, 2017 15:14
--- NOTE | 2017-09-08 15:26 | Immediate Post-Op Evaluation ---
Immediate Post-Op Evalulation Immediate Post-Op Evalulation Procedure: L hip hemiarthroplasty Date of Evaluation: Sep 08, 2017 Time of Evaluation: 15:25 IV Fluids: 1200 Blood Products: [id number] Estimated Blood Loss: 300 Urinary Output: 50 Blood Pressure Systolic: 128 Blood Pressure Diastolic: 82 Pulse Rate: 88 Respiratory Rate: 20 O2 Sat by Pulse Oximetry: 99 Temperature (Fahrenheit): 98.1 Pain Score (1-10): 2 Nausea: No Vomiting: No Patient Status: reacts, patent, none Hydration Status: adequate KARINA KOWALSKI M.D. Sep 08, 2017 15:26
--- NOTE | 2017-09-08 15:48 | General Progress Note ---
Assessment/Plan Status: stable Assessment/Plan status: UTI start Rocephin Low K- PO supplement At fib in ICU on Cardiazem drip HTN adjust meds Ischemia in EKG Lt hip Fx Echo: Left ventricular ejection fraction estimated to be 50- 55 %. Mild left ventricular hypertrophy. Plan: Rocephin for UTI PO K as needed Gastric support monitor lytes and H&H and renal parameters per orders- per consultants Subjective ROS Limited/Unobtainable: No Constitutional: Reports: malaise Allergies: Coded Allergies: No Known Allergies (Unverified , 09/05/17) Objective Last 24 Hour Vital Signs Date Time Temp Pulse Resp B/P (MAP) Pulse Ox O2 Delivery O2 Flow Rate FiO2 09/08/17 15:35 82 12 133/86 100 Nasal Cannula 3.0 09/08/17 15:26 93 12 120/80 100 Simple Mask 6.0 09/08/17 15:26 88 20 99 09/08/17 15:21 93 13 128/96 100 Simple Mask 6.0 09/08/17 15:16 98.1 99 16 129/91 100 Simple Mask 6.0 09/08/17 11:58 97.0 73 18 150/88 99 Room Air 09/08/17 10:09 105 145/93 09/08/17 10:09 105 09/08/17 08:08 Nasal Cannula 2.0 28 09/08/17 08:07 97 Nasal Cannula 2.0 28 09/08/17 08:00 98.4 105 18 145/93 98 Room Air 09/08/17 08:00 99 09/08/17 04:48 97.2 89 16 156/96 96 Nasal Cannula 2.0 09/08/17 04:00 94 09/08/17 01:10 96.6 70 16 147/111 97 Nasal Cannula 2.0 09/08/17 00:00 96.6 70 16 147/111 97 Nasal Cannula 2.0 09/08/17 00:00 94 09/07/17 21:13 71 131/76 09/07/17 21:00 Nasal Cannula 2.0 28 09/07/17 21:00 98 Nasal Cannula 2.0 28 09/07/17 20:00 96.8 71 16 131/76 99 Nasal Cannula 2.0 09/07/17 20:00 82 09/07/17 16:00 75 09/07/17 16:00 97.2 91 21 138/85 97 Nasal Cannula 2.0 Intake and Output 09/08/17 09/09/17 19:00 07:00 Intake Total 1050 ml Output Total 350 ml Balance 700 ml IV Total 1050 ml Output Urine Total 50 ml Estimated Blood Loss 300 ml Laboratory Tests 09/08/17 06:55: White Blood Count 6.9, Red Blood Count 3.99L, Hemoglobin 13.1, Hematocrit 38.8, Mean Corpuscular Volume 97, Mean Corpuscular Hemoglobin 32.9H, Mean Corpuscular Hemoglobin Concent 33.7, Red Cell Distribution Width 12.1, Platelet Count 160, Mean Platelet Volume 7.4, Neutrophils (%) (Auto) 69.8, Lymphocytes (%) (Auto) 18.9L, Monocytes (%) (Auto) 8.8, Eosinophils (%) (Auto) 1.8, Basophils (%) (Auto ) 0.7, Sodium Level 141, Potassium Level 3.2L, Chloride Level 106, Carbon Dioxide Level 27, Anion Gap 9, Blood Urea Nitrogen 13, Creatinine 0.8, Estimat Glomerular Filtration Rate , Glucose Level 100, Calcium Level 8.4L, Total Bilirubin 0.7, Aspartate Amino Transf (AST/SGOT) 17, Alanine Aminotransferase ( ALT/SGPT) 14, Alkaline Phosphatase 56, Total Protein 6.3L, Albumin 2.5L, Globulin 3.8, Albumin/Globulin Ratio 0.7L Height (Feet): 5 Height (Inches): 0.00 Weight (Pounds): 149 General Appearance: no apparent distress Objective other PE not changed FREDY DASH Sep 08, 2017 15:48
--- NOTE | 2017-09-08 15:55 | Cardiac Electrophysiology PN ---
Assessment/Plan Assessment/Plan 1. Atrial fibrillation with rapid ventricular response with evidence of ischemia.HR stable now on Lopressor 100 bid and Digoxin 0.25 daily. Hold off on anticoagulation until the cleared from orthopedic perspective. It is of note that the patient's CHADS2 score is 5 and she certainly needs long-term anticoagulation . 2. Hypertension. On metoprolol 100 bid. 3. Ischemic changes on electrocardiogram.No chest pain. Had Nuclear stress test yesterday but no post stress images. 4. Left hip fracture. ORIF by today. DW Dr Carmichael Subjective Subjective Going for hip surgery today. HR stable Objective Last 24 Hour Vital Signs Date Time Temp Pulse Resp B/P (MAP) Pulse Ox O2 Delivery O2 Flow Rate FiO2 09/08/17 15:35 82 12 133/86 100 Nasal Cannula 3.0 09/08/17 15:26 93 12 120/80 100 Simple Mask 6.0 09/08/17 15:26 88 20 99 09/08/17 15:21 93 13 128/96 100 Simple Mask 6.0 09/08/17 15:16 98.1 99 16 129/91 100 Simple Mask 6.0 09/08/17 11:58 97.0 73 18 150/88 99 Room Air 09/08/17 10:09 105 145/93 09/08/17 10:09 105 09/08/17 08:08 Nasal Cannula 2.0 28 09/08/17 08:07 97 Nasal Cannula 2.0 28 09/08/17 08:00 98.4 105 18 145/93 98 Room Air 09/08/17 08:00 99 09/08/17 04:48 97.2 89 16 156/96 96 Nasal Cannula 2.0 09/08/17 04:00 94 09/08/17 01:10 96.6 70 16 147/111 97 Nasal Cannula 2.0 09/08/17 00:00 96.6 70 16 147/111 97 Nasal Cannula 2.0 09/08/17 00:00 94 09/07/17 21:13 71 131/76 09/07/17 21:00 Nasal Cannula 2.0 28 09/07/17 21:00 98 Nasal Cannula 2.0 28 09/07/17 20:00 96.8 71 16 131/76 99 Nasal Cannula 2.0 09/07/17 20:00 82 09/07/17 16:00 75 09/07/17 16:00 97.2 91 21 138/85 97 Nasal Cannula 2.0 Intake and Output 09/08/17 09/09/17 19:00 07:00 Intake Total 1050 ml Output Total 350 ml Balance 700 ml IV Total 1050 ml Output Urine Total 50 ml Estimated Blood Loss 300 ml Laboratory Tests Test 09/08/17 06:55 White Blood Count 6.9 K/UL (4.8-10.8) Red Blood Count 3.99 M/UL (4.20-5.40) L Hemoglobin 13.1 G/DL (12.0-16.0) Hematocrit 38.8 % (37.0-47.0) Mean Corpuscular Volume 97 FL (80-99) Mean Corpuscular Hemoglobin 32.9 PG (27.0-31.0) H Mean Corpuscular Hemoglobin Concent 33.7 G/DL (32.0-36.0) Red Cell Distribution Width 12.1 % (11.6-14.8) Platelet Count 160 K/UL (150-450) Mean Platelet Volume 7.4 FL (6.5-10.1) Neutrophils (%) (Auto) 69.8 % (45.0-75.0) Lymphocytes (%) (Auto) 18.9 % (20.0-45.0) L Monocytes (%) (Auto) 8.8 % (1.0-10.0) Eosinophils (%) (Auto) 1.8 % (0.0-3.0) Basophils (%) (Auto) 0.7 % (0.0-2.0) Sodium Level 141 MMOL/L (136-145) Potassium Level 3.2 MMOL/L (3.5-5.1) L Chloride Level 106 MMOL/L (98-107) Carbon Dioxide Level 27 MMOL/L (21-32) Anion Gap 9 mmol/L (5-15) Blood Urea Nitrogen 13 mg/dL (7-18) Creatinine 0.8 MG/DL (0.55-1.30) Estimat Glomerular Filtration Rate mL/min (>60) Glucose Level 100 MG/DL (74-106) Calcium Level 8.4 MG/DL (8.5-10.1) L Total Bilirubin 0.7 MG/DL (0.2-1.0) Aspartate Amino Transf (AST/SGOT) 17 U/L (15-37) Alanine Aminotransferase (ALT/SGPT) 14 U/L (12-78) Alkaline Phosphatase 56 U/L (46-116) Total Protein 6.3 G/DL (6.4-8.2) L Albumin 2.5 G/DL (3.4-5.0) L Globulin 3.8 g/dL Albumin/Globulin Ratio 0.7 (1.0-2.7) L Objective HEAD AND NECK: Shows no JVD. LUNGS: Clear. CARDIOVASCULAR: Irregularly irregular. S1 and S2, with no gallop or murmur. ABDOMEN: Soft. EXTREMITIES: Left hip tenderness with rotation of left hip. ANIYA SMITH Sep 08, 2017 15:55
--- NOTE | 2017-09-08 17:17 | General Progress Note ---
Assessment/Plan Assessment/Plan ASSESSMENT AND RECOMMENDATIONS: 1. Thrombocytopenia. Resolved. 2. Anemia secondary to chronic disease. 3. Hypertension, on metoprolol. 4. Ischemic changes on EKG. Nuclear stress test scheduled. 5. Status post left hip fracture. She was seen by surgical service, Dr. Iverson. 6. Atrial fibrillation, on Cardizem. Increase Lopressor. Continue digoxin. Subjective Allergies: Coded Allergies: No Known Allergies (Unverified , 09/05/17) All Systems: reviewed and negative except above Subjective s/p hemiarthroplasty Objective Last 24 Hour Vital Signs Date Time Temp Pulse Resp B/P (MAP) Pulse Ox O2 Delivery O2 Flow Rate FiO2 09/08/17 16:18 98.0 09/08/17 16:18 98.0 09/08/17 16:15 98.0 100 19 141/83 98 Nasal Cannula 3.0 09/08/17 16:05 93 19 151/89 98 Nasal Cannula 3.0 09/08/17 15:52 100 15 142/91 98 Nasal Cannula 3.0 09/08/17 15:48 93 12 139/91 98 Nasal Cannula 3.0 09/08/17 15:35 82 12 133/86 100 Nasal Cannula 3.0 09/08/17 15:26 93 12 120/80 100 Simple Mask 6.0 09/08/17 15:26 88 20 99 09/08/17 15:21 93 13 128/96 100 Simple Mask 6.0 09/08/17 15:16 98.1 99 16 129/91 100 Simple Mask 6.0 09/08/17 12:00 102 09/08/17 11:58 97.0 73 18 150/88 99 Room Air 09/08/17 10:09 105 145/93 09/08/17 10:09 105 09/08/17 08:08 Nasal Cannula 2.0 28 09/08/17 08:07 97 Nasal Cannula 2.0 28 09/08/17 08:00 98.4 105 18 145/93 98 Room Air 09/08/17 08:00 99 09/08/17 04:48 97.2 89 16 156/96 96 Nasal Cannula 2.0 09/08/17 04:00 94 09/08/17 01:10 96.6 70 16 147/111 97 Nasal Cannula 2.0 09/08/17 00:00 96.6 70 16 147/111 97 Nasal Cannula 2.0 09/08/17 00:00 94 09/07/17 21:13 71 131/76 09/07/17 21:00 Nasal Cannula 2.0 28 09/07/17 21:00 98 Nasal Cannula 2.0 28 09/07/17 20:00 96.8 71 16 131/76 99 Nasal Cannula 2.0 09/07/17 20:00 82 Intake and Output 09/08/17 09/09/17 19:00 07:00 Intake Total 1500 ml Output Total 450 ml Balance 1050 ml IV Total 1250 ml Other 250 ml Output Urine Total 150 ml Estimated Blood Loss 300 ml Laboratory Tests 09/08/17 06:55: White Blood Count 6.9, Red Blood Count 3.99L, Hemoglobin 13.1, Hematocrit 38.8, Mean Corpuscular Volume 97, Mean Corpuscular Hemoglobin 32.9H, Mean Corpuscular Hemoglobin Concent 33.7, Red Cell Distribution Width 12.1, Platelet Count 160, Mean Platelet Volume 7.4, Neutrophils (%) (Auto) 69.8, Lymphocytes (%) (Auto) 18.9L, Monocytes (%) (Auto) 8.8, Eosinophils (%) (Auto) 1.8, Basophils (%) (Auto ) 0.7, Sodium Level 141, Potassium Level 3.2L, Chloride Level 106, Carbon Dioxide Level 27, Anion Gap 9, Blood Urea Nitrogen 13, Creatinine 0.8, Estimat Glomerular Filtration Rate , Glucose Level 100, Calcium Level 8.4L, Total Bilirubin 0.7, Aspartate Amino Transf (AST/SGOT) 17, Alanine Aminotransferase ( ALT/SGPT) 14, Alkaline Phosphatase 56, Total Protein 6.3L, Albumin 2.5L, Globulin 3.8, Albumin/Globulin Ratio 0.7L Height (Feet): 5 Height (Inches): 0.00 Weight (Pounds): 149 General Appearance: no apparent distress Cardiovascular: regular rhythm Respiratory/Chest: chest wall non-tender Abdomen: non tender Edema: mild edema Pratik Sexton Sep 08, 2017 17:17
[2017-09-08] MEDS: Pericolace tab ORAL SCH (17:39)
[2017-09-08] MEDS: Docusate 100mg cap ORAL SCH (17:41)
--- NOTE | 2017-09-08 18:12 | Diagnostic Imaging Report ---
Indication: POST-OP status post left hip arthroplasty Technique: One view of the pelvis Comparison: 09/05/2017 Findings: There is a left hemiarthroplasty prosthesis now present. This appears well aligned. There is some retained air from the surgical exposure within the soft tissues. A Laura catheter is incidentally noted. Impression: Postoperative left hip. No unusual features
[2017-09-08] MEDS ORDERED: Hydromorphone 0.5mg/0.5ml inj SUBQ PRN (19:00)
[2017-09-08] MEDS ORDERED: ceFAZolin sod 2 GM in D5W 110 ML IV SCH (20:00)
[2017-09-08] MEDS: ceFAZolin 2gm/50ml Premix 50 ML IV SCH (20:55)
--- NOTE | 2017-09-08 21:15 | Operative Note - Dictated ---
DATE OF OPERATION: 09/08/2017 PREOPERATIVE DIAGNOSIS: Left hip displaced femoral neck fracture. POSTOPERATIVE DIAGNOSIS: Left hip displaced femoral neck fracture. PROCEDURE: Left hip hemiarthroplasty using Rosario system with size 5 Accolade 132 degree neck angle proximally coated stem, size 42 bipolar component with standard offset and neutral neck length head. SURGEON: Kal Iverson M.D. WOOD PATTERN MAKER: Rosalie Carlos PA-C. ANESTHESIOLOGIST: Willem Gutierrez M.D. ANESTHESIA: Spinal anesthesia. EBL: 150 mL. COMPLICATIONS: None. BRIEF HISTORY: The patient is a pleasant 76-year-old female, who sustained a mechanical fall and broke her left hip. She was evaluated in the ER and admitted to the hospital. She had some cardiac issue and lockstitch lining maker evaluated her. Stress test was performed and she was cleared for surgery. After full discussion of the risks and benefits of the surgery and complications associated with including infection, bleeding, neurovascular complication, possibility of DVT, PE, leg length discrepancies, dislocations, needing further surgery, inability to walk very well, needing assistive devices and even wheelchair, she opted for surgical treatment as described above. OPERATIVE PROCEDURE: The patient was brought up to the operating table and was placed supine. All pressure points were well padded. Spinal anesthesia was induced. The patient was placed in right lateral decubitus position with the left hip up. All pressure points well padded. The patient was stabilized with pegboard, which were padded. The left hip was then prepped and draped in usual sterile fashion. Standard posterior lateral approach to the hip was undertaken. The incision was taken through subcutaneous tissue. Tensor fascia was opened and short external rotator was released. The capsule was teed. Hematoma was evacuated and the fracture was visualized. The femoral neck was completely fractured and was displaced. At this point, the head was removed with the threaded Steinmann pin. The neck was long and a standard neck cut was performed approximately a centimeter proximal to lesser trochanter. Once this was completed, the acetabulum was visualized. There was no significant arthritis. There were no loose fragments. This area was thoroughly irrigated with copious amount of fluid. The capsular edges were teed for later repair. At this point, care was given to the femur. The hip was internally rotated. The Berger retractor was placed in and sequential broaching was performed from 0 broach up to size 6 broach. The 6 broach was slightly protruding. Therefore, size 5 broach was well-seated and calcar reaming was performed. At this point, a standard neck and head were assembled with a 42 mm bipolar component and the entire construct was reduced. The hip was reduced anatomically. The leg lengths appeared to be equal. Range of motion was excellent. Stability was checked at 0 degrees, 30 degrees, 45 degrees, and 90 degrees of flexion and internal rotation up to 75 degrees with hip in neutral abduction and there was excellent stability all the way up to approximately 80 degrees of internal rotation. Anteriorly, the hip was externally rotated and there was excellent stability. At this point, all wounds were thoroughly irrigated. The trial components were removed. The size 5 stem was then opened and was seated without any complication. The hip and acetabulum were thoroughly irrigated using Simpulse irrigation prior to final stem placement. Once the stem was seated, trialing was performed with the previously described bipolar component and there was excellent stability as described. Therefore, the trial components were removed and Harrison taper was dried and a standard neck and head with 42 mm bipolar component with 0 additional length was locked in onto the Harrison taper and was banked in without any complication. The stability was checked and appeared to be perfect on the Harrison taper. The entire construct was then reduced back into the acetabulum and range of motion stability was checked and appeared to be excellent as described previously. Leg length was perfect. At this point, all wounds were thoroughly irrigated using copious amount of fluid. The short external rotators were repaired back onto the greater trochanter through drill holes. The capsule was closed using #1 Vicryl suture. The tensor fascia was closed using #1 Vicryl suture. The subcutaneous tissue was closed using 2-0 Vicryl suture and skin was closed using 3-0 Monocryl suture. Abduction splint was applied and the patient was taken to the regular bed and was taken to recovery room in stable condition. All lap counts and instrument counts were correct. Kal Iverson M.D. DR: Jena JOB#: [id number] CC:
[2017-09-08] MEDS ORDERED: NS 550ML IV ONE (21:36)
[2017-09-08] MEDS ORDERED: Tubing IV Secondary IV ONE ×2 (21:36→21:37)
[2017-09-08] MEDS ORDERED: NS 275ml ONE (21:37)
[2017-09-08] MEDS: cefTRIAXone 1 GM in D5W 55 ML IVPB SCH (23:30)
[2017-09-09] VITALS: BP 133/76
[2017-09-09] MEDS: D5 1/2NS w/KCl 20mEq 1,000 ML IV SCH (02:01)
[2017-09-09 04:00] VITALS: BP 128/86
[2017-09-09] MEDS: ceFAZolin 2gm/50ml Premix 50 ML IV SCH (04:35)
[2017-09-09 05:30] LABS: BASOPHILS % (AUTO) 0.8 % (0.0-2.0); LYMPHOCYTES % (AUTO) 11.8 % (20.0-45.0); MEAN CORPUSCULAR HEMOGLOBIN 32.9 PG (27.0-31.0); MEAN CORPUSCULAR HGB CONC 33.8 G/DL (32.0-36.0); MEAN CORPUSCULAR VOLUME 97 FL (80-99); MEAN PLATELET VOLUME 7.3 FL (6.5-10.1); MONOCYTES % (AUTO) 10.5 % (1.0-10.0); NEUTROPHILS % (AUTO) 75.9 % (45.0-75.0); PLATELET COUNT 154 K/UL (150-450); RED BLOOD COUNT 3.39 M/UL (4.20-5.40); WHITE BLOOD COUNT 6.7 K/UL (4.8-10.8)
[2017-09-09 05:52] LABS: ANION GAP 7 mmol/L (5-15); CALCIUM 8.4 MG/DL (8.5-10.1); CARBON DIOXIDE 27 MMOL/L (21-32); CHLORIDE 104 MMOL/L (98-107); CREATININE 0.9 MG/DL (0.55-1.30); POTASSIUM 3.5 MMOL/L (3.5-5.1); SODIUM 138 MMOL/L (136-145)
[2017-09-09 08:00] VITALS: BP 148/95
[2017-09-09] MEDS: Norco 5mg/325mg tab ORAL PRN ×2 (09:29→18:43)
[2017-09-09] MEDS: Metoprolol Tartrate 50mg tab ORAL SCH ×2 (09:30→21:00)
[2017-09-09] MEDS: Pericolace tab ORAL SCH ×2 (09:30→18:43)
[2017-09-09] MEDS: Docusate 100mg cap ORAL SCH ×3 (09:30→18:42)
[2017-09-09] MEDS: Enoxaparin 40mg Inj SUBQ SCH (09:30)
--- NOTE | 2017-09-09 11:37 | General Progress Note ---
Assessment/Plan Problem List: (1) Atrial fibrillation ICD Codes: I48.91 - Unspecified atrial fibrillation SNOMED: 16782421 (2) Femoral neck fracture ICD Codes: S72.009A - Fracture of unspecified part of neck of unspecified femur , initial encounter for closed fracture SNOMED: 4042490 (3) UTI (urinary tract infection) ICD Codes: N39.0 - Urinary tract infection, site not specified SNOMED: 93715895 (4) A-fib ICD Codes: I48.91 - Unspecified atrial fibrillation SNOMED: 70861676 (5) Femur fracture, left ICD Codes: S72.92XA - Unspecified fracture of left femur, initial encounter for closed fracture SNOMED: 53920290 (6) Atrial fibrillation with RVR ICD Codes: I48.91 - Unspecified atrial fibrillation SNOMED: 147206163910047 Status: stable, progressing, tolerating diet Assessment/Plan ot pt diet ortho f/u abx cardio f/u cbc bmp am Subjective Constitutional: Reports: weakness Allergies: Coded Allergies: No Known Allergies (Unverified , 09/05/17) All Systems: reviewed and negative except above Subjective o2nc calm Objective Last 24 Hour Vital Signs Date Time Temp Pulse Resp B/P (MAP) Pulse Ox O2 Delivery O2 Flow Rate FiO2 09/09/17 09:30 94 148/95 09/09/17 09:29 94 09/09/17 08:03 Nasal Cannula 2.0 28 09/09/17 08:03 99 Nasal Cannula 2.0 28 09/09/17 08:00 98.4 95 18 148/95 99 Nasal Cannula 2.0 09/09/17 04:00 96 09/09/17 04:00 98.1 99 20 128/86 93 Nasal Cannula 2.0 09/09/17 00:00 97.9 76 18 133/76 97 Room Air 09/09/17 00:00 108 09/08/17 21:47 99 135/76 09/08/17 20:00 95 09/08/17 20:00 97.7 99 20 135/76 95 Nasal Cannula 2.0 09/08/17 19:03 Nasal Cannula 2.0 28 09/08/17 19:03 99 Nasal Cannula 2.0 28 09/08/17 17:41 83 135/76 09/08/17 16:20 98.0 74 17 150/98 97 Nasal Cannula 3.0 09/08/17 16:18 98.0 09/08/17 16:18 98.0 09/08/17 16:15 98.0 100 19 141/83 98 Nasal Cannula 3.0 09/08/17 16:05 93 19 151/89 98 Nasal Cannula 3.0 09/08/17 15:52 100 15 142/91 98 Nasal Cannula 3.0 09/08/17 15:48 93 12 139/91 98 Nasal Cannula 3.0 09/08/17 15:35 82 12 133/86 100 Nasal Cannula 3.0 09/08/17 15:26 93 12 120/80 100 Simple Mask 6.0 09/08/17 15:26 88 20 99 09/08/17 15:21 93 13 128/96 100 Simple Mask 6.0 09/08/17 15:16 98.1 99 16 129/91 100 Simple Mask 6.0 09/08/17 12:00 102 09/08/17 11:58 97.0 73 18 150/88 99 Room Air Laboratory Tests 09/09/17 04:40: White Blood Count 6.7, Red Blood Count 3.39L, Hemoglobin 11.2L, Hematocrit 33.0L , Mean Corpuscular Volume 97, Mean Corpuscular Hemoglobin 32.9H, Mean Corpuscular Hemoglobin Concent 33.8, Red Cell Distribution Width 12.0, Platelet Count 154, Mean Platelet Volume 7.3, Neutrophils (%) (Auto) 75.9H, Lymphocytes ( %) (Auto) 11.8L, Monocytes (%) (Auto) 10.5H, Eosinophils (%) (Auto) 1.0, Basophils (%) (Auto) 0.8, Sodium Level 138, Potassium Level 3.5, Chloride Level 104, Carbon Dioxide Level 27, Anion Gap 7, Blood Urea Nitrogen 17, Creatinine 0.9, Estimat Glomerular Filtration Rate , Glucose Level 122H, Calcium Level 8.4L Height (Feet): 5 Height (Inches): 0.00 Weight (Pounds): 154 General Appearance: lethargic EENT: normal ENT inspection Neck: non-tender, normal alignment, supple Cardiovascular: normal peripheral pulses, normal rate, regular rhythm Respiratory/Chest: chest wall non-tender, lungs clear, normal breath sounds Abdomen: normal bowel sounds, non tender, soft Extremities: normal inspection Edema: no edema noted Arm (L), no edema noted Arm (R), no edema noted Leg (L), no edema noted Leg (R), no edema noted Pedal (L), no edema noted Pedal (R), no edema noted Generalized Neurologic: motor weakness Skin: normal pigmentation, warm/dry ELIZABETH BIGGS Sep 09, 2017 11:37
[2017-09-09 12:00] VITALS: BP 113/64
--- NOTE | 2017-09-09 12:23 | General Progress Note ---
Assessment/Plan Status: stable - from renal stand Assessment/Plan status: UTI start Rocephin Low K- PO supplement At fib in ICU on Cardiazem drip HTN adjust meds Ischemia in EKG Lt hip Fx had surgery 09/08 Echo: Left ventricular ejection fraction estimated to be 50- 55 %. Mild left ventricular hypertrophy. Plan: DC IV Stool softner Rocephin for UTI PO K as needed Gastric support monitor lytes and H&H and renal parameters per orders- per consultants Subjective ROS Limited/Unobtainable: No Constitutional: Reports: malaise Allergies: Coded Allergies: No Known Allergies (Unverified , 09/05/17) Objective Last 24 Hour Vital Signs Date Time Temp Pulse Resp B/P (MAP) Pulse Ox O2 Delivery O2 Flow Rate FiO2 09/09/17 09:30 94 148/95 09/09/17 09:29 94 09/09/17 08:03 Nasal Cannula 2.0 28 09/09/17 08:03 99 Nasal Cannula 2.0 28 09/09/17 08:00 98.4 95 18 148/95 99 Nasal Cannula 2.0 09/09/17 04:00 96 09/09/17 04:00 98.1 99 20 128/86 93 Nasal Cannula 2.0 09/09/17 00:00 97.9 76 18 133/76 97 Room Air 09/09/17 00:00 108 09/08/17 21:47 99 135/76 09/08/17 20:00 95 09/08/17 20:00 97.7 99 20 135/76 95 Nasal Cannula 2.0 09/08/17 19:03 Nasal Cannula 2.0 28 09/08/17 19:03 99 Nasal Cannula 2.0 28 09/08/17 17:41 83 135/76 09/08/17 16:20 98.0 74 17 150/98 97 Nasal Cannula 3.0 09/08/17 16:18 98.0 09/08/17 16:18 98.0 09/08/17 16:15 98.0 100 19 141/83 98 Nasal Cannula 3.0 09/08/17 16:05 93 19 151/89 98 Nasal Cannula 3.0 09/08/17 15:52 100 15 142/91 98 Nasal Cannula 3.0 09/08/17 15:48 93 12 139/91 98 Nasal Cannula 3.0 09/08/17 15:35 82 12 133/86 100 Nasal Cannula 3.0 09/08/17 15:26 93 12 120/80 100 Simple Mask 6.0 09/08/17 15:26 88 20 99 09/08/17 15:21 93 13 128/96 100 Simple Mask 6.0 09/08/17 15:16 98.1 99 16 129/91 100 Simple Mask 6.0 Laboratory Tests 09/09/17 04:40: White Blood Count 6.7, Red Blood Count 3.39L, Hemoglobin 11.2L, Hematocrit 33.0L , Mean Corpuscular Volume 97, Mean Corpuscular Hemoglobin 32.9H, Mean Corpuscular Hemoglobin Concent 33.8, Red Cell Distribution Width 12.0, Platelet Count 154, Mean Platelet Volume 7.3, Neutrophils (%) (Auto) 75.9H, Lymphocytes ( %) (Auto) 11.8L, Monocytes (%) (Auto) 10.5H, Eosinophils (%) (Auto) 1.0, Basophils (%) (Auto) 0.8, Sodium Level 138, Potassium Level 3.5, Chloride Level 104, Carbon Dioxide Level 27, Anion Gap 7, Blood Urea Nitrogen 17, Creatinine 0.9, Estimat Glomerular Filtration Rate , Glucose Level 122H, Calcium Level 8.4L Height (Feet): 5 Height (Inches): 0.00 Weight (Pounds): 154 General Appearance: no apparent distress Objective other PE not changed FREDY DASH Sep 09, 2017 12:23
[2017-09-09] MEDS ORDERED: KCl 10% 40mEq/30ml liquid ORAL ONE (12:45)
--- NOTE | 2017-09-09 15:13 | Orthopedic Progress Note ---
Orthopedic - Progress Note Subjective Symptoms: improved Objective Vital Signs Laboratory Tests Test 09/09/17 04:40 White Blood Count 6.7 K/UL (4.8-10.8) Red Blood Count 3.39 M/UL (4.20-5.40) L Hemoglobin 11.2 G/DL (12.0-16.0) L Hematocrit 33.0 % (37.0-47.0) L Mean Corpuscular Volume 97 FL (80-99) Mean Corpuscular Hemoglobin 32.9 PG (27.0-31.0) H Mean Corpuscular Hemoglobin Concent 33.8 G/DL (32.0-36.0) Red Cell Distribution Width 12.0 % (11.6-14.8) Platelet Count 154 K/UL (150-450) Mean Platelet Volume 7.3 FL (6.5-10.1) Neutrophils (%) (Auto) 75.9 % (45.0-75.0) H Lymphocytes (%) (Auto) 11.8 % (20.0-45.0) L Monocytes (%) (Auto) 10.5 % (1.0-10.0) H Eosinophils (%) (Auto) 1.0 % (0.0-3.0) Basophils (%) (Auto) 0.8 % (0.0-2.0) Sodium Level 138 MMOL/L (136-145) Potassium Level 3.5 MMOL/L (3.5-5.1) Chloride Level 104 MMOL/L (98-107) Carbon Dioxide Level 27 MMOL/L (21-32) Anion Gap 7 mmol/L (5-15) Blood Urea Nitrogen 17 mg/dL (7-18) Creatinine 0.9 MG/DL (0.55-1.30) Estimat Glomerular Filtration Rate mL/min (>60) Glucose Level 122 MG/DL (74-106) H Calcium Level 8.4 MG/DL (8.5-10.1) L Last 24 Hour Vital Signs Date Time Temp Pulse Resp B/P (MAP) Pulse Ox O2 Delivery O2 Flow Rate FiO2 09/09/17 12:00 98.2 88 20 113/64 98 Nasal Cannula 2.0 09/09/17 09:30 94 148/95 09/09/17 09:29 94 09/09/17 08:03 Nasal Cannula 2.0 28 09/09/17 08:03 99 Nasal Cannula 2.0 28 09/09/17 08:00 98.4 95 18 148/95 99 Nasal Cannula 2.0 09/09/17 04:00 96 09/09/17 04:00 98.1 99 20 128/86 93 Nasal Cannula 2.0 09/09/17 00:00 97.9 76 18 133/76 97 Room Air 09/09/17 00:00 108 09/08/17 21:47 99 135/76 09/08/17 20:00 95 09/08/17 20:00 97.7 99 20 135/76 95 Nasal Cannula 2.0 09/08/17 19:03 Nasal Cannula 2.0 28 09/08/17 19:03 99 Nasal Cannula 2.0 28 09/08/17 17:41 83 135/76 09/08/17 16:20 98.0 74 17 150/98 97 Nasal Cannula 3.0 09/08/17 16:18 98.0 09/08/17 16:18 98.0 09/08/17 16:15 98.0 100 19 141/83 98 Nasal Cannula 3.0 09/08/17 16:05 93 19 151/89 98 Nasal Cannula 3.0 09/08/17 15:52 100 15 142/91 98 Nasal Cannula 3.0 09/08/17 15:48 93 12 139/91 98 Nasal Cannula 3.0 09/08/17 15:35 82 12 133/86 100 Nasal Cannula 3.0 09/08/17 15:26 93 12 120/80 100 Simple Mask 6.0 09/08/17 15:26 88 20 99 09/08/17 15:21 93 13 128/96 100 Simple Mask 6.0 09/08/17 15:16 98.1 99 16 129/91 100 Simple Mask 6.0 Wound: clean, dry, intact Drains: none Neuro Status: normal Vascular Status: normal Additional Comments Xray excellent Assessment Post-op Diagnosis POD 1 Procedure Performed left hip hemiarthroplasty Plan Plan: PT, discharge plan - fu Dr. krishna 2 weeks after d/c IRINA MIR Sep 09, 2017 15:13
[2017-09-09 16:00] VITALS: BP 109/62
[2017-09-09 20:07] VITALS: BP 108/71
[2017-09-09] MEDS: cefTRIAXone 1 GM in D5W 55 ML IVPB SCH (23:28)
[2017-09-10] VITALS: BP 113/58
[2017-09-10] MEDS: Norco 5mg/325mg tab ORAL PRN ×4 (02:46→21:20)
[2017-09-10 04:00] VITALS: BP 105/75
[2017-09-10 07:53] LABS: BASOPHILS % (AUTO) 0.6 % (0.0-2.0); EOSINOPHILS % (AUTO) 1.5 % (0.0-3.0); MEAN CORPUSCULAR HEMOGLOBIN 33.2 PG (27.0-31.0); MEAN CORPUSCULAR HGB CONC 33.8 G/DL (32.0-36.0); MEAN CORPUSCULAR VOLUME 98 FL (80-99); MEAN PLATELET VOLUME 7.3 FL (6.5-10.1); NEUTROPHILS % (AUTO) 64.9 % (45.0-75.0); PLATELET COUNT 147 K/UL (150-450); RED BLOOD COUNT 3.22 M/UL (4.20-5.40); RED CELL DISTRIBUTION WIDTH 12.4 % (11.6-14.8); WHITE BLOOD COUNT 7.5 K/UL (4.8-10.8)
--- NOTE | 2017-09-10 08:00 | General Progress Note ---
Assessment/Plan Assessment/Plan ASSESSMENT AND RECOMMENDATIONS: 1. Thrombocytopenia. Resolved. --> plt goal above 20k 2. Anemia secondary to chronic disease. --> hgb above 7 3. Hypertension, on metoprolol. 4. Ischemic changes on EKG. Nuclear stress test scheduled. 5. Status post left hip fracture. She was seen by surgical service, Dr. Iverson. 6. Atrial fibrillation, on Cardizem. Increase Lopressor. Continue digoxin. Subjective Date patient seen: Sep 09, 2017 Constitutional: Denies: no symptoms, chills, diaphoresis, fever, malaise, weakness, other HEENT: Denies: no symptoms, eye pain, blurred vision, tearing, double vision, ear pain, ear discharge, nose pain, nose congestion, throat pain, throat swelling, mouth pain, mouth swelling, other Respiratory: Denies: no symptoms, cough, orthopnea, shortness of breath, SOB with excertion, SOB at rest, sputum, stridor, wheezing, other Gastrointestinal/Abdominal: Denies: no symptoms, abdomen distended, abdominal pain, black stools, tarry stools, blood in stool, constipated, diarrhea, difficulty swallowing, nausea, poor appetite, poor fluid intake, rectal bleeding , vomiting, other Genitourinary: Denies: no symptoms, burning, discharge, frequency, flank pain, hematuria, incontinence, pain, urgency, other Neurologic/Psychiatric: Denies: no symptoms, anxiety, depressed, emotional problems, headache, numbness, paresthesia, pre-existing deficit, seizure, tingling, tremors, weakness, other Endocrine: Denies: no symptoms, excessive sweating, flushing, intolerance to cold, intolerance to heat, increased hunger, increased thirst, increased urine, unexplained weight gain, unexplained weight loss, other Hematologic/Lymphatic: Denies: no symptoms, anemia, easy bleeding, easy bruising, other Allergies: Coded Allergies: No Known Allergies (Unverified , 09/05/17) Subjective stable, no f/c, no night sweats remiains confused Objective Last 24 Hour Vital Signs Date Time Temp Pulse Resp B/P (MAP) Pulse Ox O2 Delivery O2 Flow Rate FiO2 09/10/17 04:00 91 09/10/17 04:00 98.6 85 20 105/75 92 Room Air 2.0 28 09/10/17 00:00 97.0 100 20 113/58 93 Room Air 2.0 28 09/10/17 00:00 87 09/09/17 21:00 100 122/74 09/09/17 20:07 100.0 100 20 108/71 93 Room Air 09/09/17 20:00 99 09/09/17 16:00 99.0 69 18 109/62 99 Nasal Cannula 2.0 09/09/17 16:00 80 09/09/17 12:00 98.2 88 20 113/64 98 Nasal Cannula 2.0 09/09/17 12:00 85 09/09/17 09:30 94 148/95 09/09/17 09:29 94 09/09/17 08:03 Nasal Cannula 2.0 28 09/09/17 08:03 99 Nasal Cannula 2.0 28 09/09/17 08:00 98.4 95 18 148/95 99 Nasal Cannula 2.0 09/09/17 08:00 81 Intake and Output 09/10/17 09/11/17 19:00 07:00 Intake Total 50 ml Balance 50 ml IV Total 50 ml Laboratory Tests 09/10/17 06:20: White Blood Count [Pending], Red Blood Count [Pending], Hemoglobin [Pending], Hematocrit [Pending], Mean Corpuscular Volume [Pending], Mean Corpuscular Hemoglobin [Pending], Mean Corpuscular Hemoglobin Concent [Pending], Red Cell Distribution Width [Pending], Platelet Count [Pending], Mean Platelet Volume [ Pending], Neutrophils (%) (Auto) [Pending], Lymphocytes (%) (Auto) [Pending], Monocytes (%) (Auto) [Pending], Eosinophils (%) (Auto) [Pending], Basophils (%) (Auto) [Pending], Sodium Level [Pending], Potassium Level [Pending], Chloride Level [Pending], Carbon Dioxide Level [Pending], Blood Urea Nitrogen [Pending], Creatinine [Pending], Estimat Glomerular Filtration Rate [Pending], Glucose Level [Pending], Calcium Level [Pending] Height (Feet): 5 Height (Inches): 0.00 Weight (Pounds): 156 General Appearance: no apparent distress EENT: pharynx normal Neck: non-tender Cardiovascular: normal rate Respiratory/Chest: lungs clear Abdomen: no organomegaly Pelvis: normal rectal exam Extremities: non-tender Edema: 1+ Leg (L), 1+ Leg (R) Edema: trace edema Neurologic: no motor/sensory deficits SALVATORE CARRILLO Sep 10, 2017 08:00
[2017-09-10 08:18] LABS: ANION GAP 6 mmol/L (5-15); CALCIUM 8.3 MG/DL (8.5-10.1); CARBON DIOXIDE 26 MMOL/L (21-32); CHLORIDE 107 MMOL/L (98-107); SODIUM 139 MMOL/L (136-145)
[2017-09-10 08:28] VITALS: BP 98/61
[2017-09-10] MEDS: Metoprolol Tartrate 50mg tab ORAL SCH ×2 (09:00→21:19)
[2017-09-10] MEDS: Docusate 100mg cap ORAL SCH ×3 (09:22→17:33)
[2017-09-10] MEDS: Pericolace tab ORAL SCH ×2 (09:22→17:33)
[2017-09-10] MEDS: Enoxaparin 40mg Inj SUBQ SCH (09:24)
[2017-09-10] MEDS ORDERED: Tubing IV Secondary IV ONE (09:45)
--- NOTE | 2017-09-10 09:54 | General Progress Note ---
Assessment/Plan Problem List: (1) Atrial fibrillation ICD Codes: I48.91 - Unspecified atrial fibrillation SNOMED: 79547706 (2) Femoral neck fracture ICD Codes: S72.009A - Fracture of unspecified part of neck of unspecified femur , initial encounter for closed fracture SNOMED: 4894803 (3) UTI (urinary tract infection) ICD Codes: N39.0 - Urinary tract infection, site not specified SNOMED: 10899329 (4) A-fib ICD Codes: I48.91 - Unspecified atrial fibrillation SNOMED: 58800451 (5) Femur fracture, left ICD Codes: S72.92XA - Unspecified fracture of left femur, initial encounter for closed fracture SNOMED: 41654526 (6) Atrial fibrillation with RVR ICD Codes: I48.91 - Unspecified atrial fibrillation SNOMED: 412160685497835 Status: stable, progressing, tolerating diet Assessment/Plan ot pt diet ortho f/u abx cardio f/u cbc bmp am Subjective Constitutional: Reports: weakness Allergies: Coded Allergies: No Known Allergies (Unverified , 09/05/17) All Systems: reviewed and negative except above Subjective calm in bed Objective Last 24 Hour Vital Signs Date Time Temp Pulse Resp B/P (MAP) Pulse Ox O2 Delivery O2 Flow Rate FiO2 09/10/17 09:23 98 09/10/17 09:00 98 98/61 09/10/17 08:28 97.0 98 18 98/61 94 Room Air 09/10/17 07:55 Nasal Cannula 2.0 28 09/10/17 07:55 99 Nasal Cannula 2.0 28 09/10/17 04:00 91 09/10/17 04:00 98.6 85 20 105/75 92 Room Air 2.0 28 09/10/17 00:00 97.0 100 20 113/58 93 Room Air 2.0 28 09/10/17 00:00 87 09/09/17 21:00 100 122/74 09/09/17 20:07 100.0 100 20 108/71 93 Room Air 09/09/17 20:00 99 09/09/17 16:00 99.0 69 18 109/62 99 Nasal Cannula 2.0 09/09/17 16:00 80 09/09/17 12:00 98.2 88 20 113/64 98 Nasal Cannula 2.0 09/09/17 12:00 85 Intake and Output 09/10/17 09/11/17 19:00 07:00 Intake Total 170 ml Balance 170 ml Intake Oral 120 ml IV Total 50 ml Laboratory Tests 09/10/17 06:20: White Blood Count 7.5, Red Blood Count 3.22L, Hemoglobin 10.7L, Hematocrit 31.6L , Mean Corpuscular Volume 98, Mean Corpuscular Hemoglobin 33.2H, Mean Corpuscular Hemoglobin Concent 33.8, Red Cell Distribution Width 12.4, Platelet Count 147L, Mean Platelet Volume 7.3, Neutrophils (%) (Auto) 64.9, Lymphocytes ( %) (Auto) 22.0, Monocytes (%) (Auto) 11.0H, Eosinophils (%) (Auto) 1.5, Basophils (%) (Auto) 0.6, Sodium Level 139, Potassium Level 4.0, Chloride Level 107, Carbon Dioxide Level 26, Anion Gap 6, Blood Urea Nitrogen 20H, Creatinine 1.0, Estimat Glomerular Filtration Rate , Glucose Level 117H, Calcium Level 8.3L Height (Feet): 5 Height (Inches): 0.00 Weight (Pounds): 156 General Appearance: lethargic EENT: normal ENT inspection Neck: normal alignment Cardiovascular: normal peripheral pulses, normal rate, regular rhythm Respiratory/Chest: chest wall non-tender, lungs clear, normal breath sounds Abdomen: normal bowel sounds, non tender, soft Extremities: normal inspection Edema: no edema noted Arm (L), no edema noted Arm (R), no edema noted Leg (L), no edema noted Leg (R), no edema noted Pedal (L), no edema noted Pedal (R), no edema noted Generalized Neurologic: motor weakness Skin: normal pigmentation, warm/dry ELIZABETH BIGGS Sep 10, 2017 09:54
--- NOTE | 2017-09-10 11:33 | General Progress Note ---
Assessment/Plan Status: stable Assessment/Plan status: UTI start Rocephin Low K- PO supplement At fib in ICU on Cardiazem drip HTN adjust meds Ischemia in EKG Lt hip Fx had surgery 09/08 Echo: Left ventricular ejection fraction estimated to be 50- 55 %. Mild left ventricular hypertrophy. Plan: DC IV Stool softner Rocephin for UTI PO K as needed Gastric support monitor lytes and H&H and renal parameters per orders- per consultants Subjective ROS Limited/Unobtainable: No Constitutional: Reports: malaise Allergies: Coded Allergies: No Known Allergies (Unverified , 09/05/17) Objective Last 24 Hour Vital Signs Date Time Temp Pulse Resp B/P (MAP) Pulse Ox O2 Delivery O2 Flow Rate FiO2 09/10/17 09:23 98 09/10/17 09:00 98 98/61 09/10/17 08:28 97.0 98 18 98/61 94 Room Air 09/10/17 08:00 118 09/10/17 07:55 Nasal Cannula 2.0 28 09/10/17 07:55 99 Nasal Cannula 2.0 28 09/10/17 04:00 91 09/10/17 04:00 98.6 85 20 105/75 92 Room Air 2.0 28 09/10/17 00:00 97.0 100 20 113/58 93 Room Air 2.0 28 09/10/17 00:00 87 09/09/17 21:00 100 122/74 09/09/17 20:07 100.0 100 20 108/71 93 Room Air 09/09/17 20:00 99 09/09/17 16:00 99.0 69 18 109/62 99 Nasal Cannula 2.0 09/09/17 16:00 80 09/09/17 12:00 98.2 88 20 113/64 98 Nasal Cannula 2.0 09/09/17 12:00 85 Intake and Output 09/10/17 09/11/17 19:00 07:00 Intake Total 170 ml Balance 170 ml Intake Oral 120 ml IV Total 50 ml Laboratory Tests 09/10/17 06:20: White Blood Count 7.5, Red Blood Count 3.22L, Hemoglobin 10.7L, Hematocrit 31.6L , Mean Corpuscular Volume 98, Mean Corpuscular Hemoglobin 33.2H, Mean Corpuscular Hemoglobin Concent 33.8, Red Cell Distribution Width 12.4, Platelet Count 147L, Mean Platelet Volume 7.3, Neutrophils (%) (Auto) 64.9, Lymphocytes ( %) (Auto) 22.0, Monocytes (%) (Auto) 11.0H, Eosinophils (%) (Auto) 1.5, Basophils (%) (Auto) 0.6, Sodium Level 139, Potassium Level 4.0, Chloride Level 107, Carbon Dioxide Level 26, Anion Gap 6, Blood Urea Nitrogen 20H, Creatinine 1.0, Estimat Glomerular Filtration Rate , Glucose Level 117H, Calcium Level 8.3L Height (Feet): 5 Height (Inches): 0.00 Weight (Pounds): 156 General Appearance: no apparent distress Objective other PE not changed FREDY DASH Sep 10, 2017 11:33
[2017-09-10 11:53] VITALS: BP 117/71
--- NOTE | 2017-09-10 13:18 | Cardiac Electrophysiology PN ---
Assessment/Plan Assessment/Plan 1. Atrial fibrillation with rapid ventricular response with evidence of ischemia.On Lopressor 100 bid and Digoxin 0.25 daily. Patient's CHADS2 score is 5 and she certainly needs long-term anticoagulation.Start Xarelto 20 mg daily. 2. Hypertension. On metoprolol 100 bid. 3. Ischemic changes on electrocardiogram.No chest pain. Nuclear stress test but no post stress images. Tolerated surgery with no chest pain or SOB. 4. Left hip fracture.S/ ORIF by Dr.Ganjianpour ARANA RN and Dr Carmichael Subjective Subjective S/P hip surgery 2 days ago.In atrial fib but HR stable Objective Last 24 Hour Vital Signs Date Time Temp Pulse Resp B/P (MAP) Pulse Ox O2 Delivery O2 Flow Rate FiO2 09/10/17 11:53 97.2 91 20 117/71 94 Room Air 09/10/17 09:23 98 09/10/17 09:00 98 98/61 09/10/17 08:28 97.0 98 18 98/61 94 Room Air 09/10/17 08:00 118 09/10/17 07:55 Nasal Cannula 2.0 28 09/10/17 07:55 99 Nasal Cannula 2.0 28 09/10/17 04:00 91 09/10/17 04:00 98.6 85 20 105/75 92 Room Air 2.0 28 09/10/17 00:00 97.0 100 20 113/58 93 Room Air 2.0 28 09/10/17 00:00 87 09/09/17 21:00 100 122/74 09/09/17 20:07 100.0 100 20 108/71 93 Room Air 09/09/17 20:00 99 09/09/17 16:00 99.0 69 18 109/62 99 Nasal Cannula 2.0 09/09/17 16:00 80 Intake and Output 09/10/17 09/11/17 19:00 07:00 Intake Total 420 ml Balance 420 ml Intake Oral 120 ml IV Total 300 ml Laboratory Tests Test 09/10/17 06:20 White Blood Count 7.5 K/UL (4.8-10.8) Red Blood Count 3.22 M/UL (4.20-5.40) L Hemoglobin 10.7 G/DL (12.0-16.0) L Hematocrit 31.6 % (37.0-47.0) L Mean Corpuscular Volume 98 FL (80-99) Mean Corpuscular Hemoglobin 33.2 PG (27.0-31.0) H Mean Corpuscular Hemoglobin Concent 33.8 G/DL (32.0-36.0) Red Cell Distribution Width 12.4 % (11.6-14.8) Platelet Count 147 K/UL (150-450) L Mean Platelet Volume 7.3 FL (6.5-10.1) Neutrophils (%) (Auto) 64.9 % (45.0-75.0) Lymphocytes (%) (Auto) 22.0 % (20.0-45.0) Monocytes (%) (Auto) 11.0 % (1.0-10.0) H Eosinophils (%) (Auto) 1.5 % (0.0-3.0) Basophils (%) (Auto) 0.6 % (0.0-2.0) Sodium Level 139 MMOL/L (136-145) Potassium Level 4.0 MMOL/L (3.5-5.1) Chloride Level 107 MMOL/L (98-107) Carbon Dioxide Level 26 MMOL/L (21-32) Anion Gap 6 mmol/L (5-15) Blood Urea Nitrogen 20 mg/dL (7-18) H Creatinine 1.0 MG/DL (0.55-1.30) Estimat Glomerular Filtration Rate mL/min (>60) Glucose Level 117 MG/DL (74-106) H Calcium Level 8.3 MG/DL (8.5-10.1) L Objective HEAD AND NECK: Shows no JVD. LUNGS: Clear. CARDIOVASCULAR: Irregularly irregular. S1 and S2, with no gallop or murmur. ABDOMEN: Soft. EXTREMITIES: S/P Left hip ORIF ANIYA SMITH Sep 10, 2017 13:18
[2017-09-10 16:07] VITALS: BP 139/75
[2017-09-10 20:00] VITALS: BP 118/77
--- NOTE | 2017-09-10 22:39 | General Progress Note ---
Assessment/Plan Assessment/Plan ASSESSMENT AND RECOMMENDATIONS: 1. Thrombocytopenia. Resolved. --> plt goal above 20k 2. Anemia secondary to chronic disease. --> hgb goal between 9-11 3. Hypertension, on metoprolol. 4. Ischemic changes on EKG. Nuclear stress test scheduled. 5. Status post left hip fracture. She was seen by surgical service, Dr. Iverson. 6. Atrial fibrillation, on Cardizem. Increase Lopressor. Continue digoxin. Subjective ROS Limited/Unobtainable: Yes Allergies: Coded Allergies: No Known Allergies (Unverified , 09/05/17) Subjective stable, no f/c, no night sweats Objective Last 24 Hour Vital Signs Date Time Temp Pulse Resp B/P (MAP) Pulse Ox O2 Delivery O2 Flow Rate FiO2 09/10/17 22:13 Nasal Cannula 2.0 28 09/10/17 22:13 99 Nasal Cannula 2.0 28 09/10/17 21:19 118 118/77 09/10/17 20:00 99.0 118 20 118/77 92 Room Air 09/10/17 16:07 98.7 113 18 139/75 95 Room Air 09/10/17 16:00 106 09/10/17 12:00 92 09/10/17 11:53 97.2 91 20 117/71 94 Room Air 09/10/17 09:23 98 09/10/17 09:00 98 98/61 09/10/17 08:28 97.0 98 18 98/61 94 Room Air 09/10/17 08:00 118 09/10/17 07:55 Nasal Cannula 2.0 09/10/17 07:55 99 Nasal Cannula 2.0 28 09/10/17 04:00 91 09/10/17 04:00 98.6 85 20 105/75 92 Room Air 2.0 09/10/17 00:00 97.0 100 20 113/58 93 Room Air 2.0 09/10/17 00:00 87 Intake and Output 09/10/17 09/11/17 19:00 07:00 Intake Total 810 ml Balance 810 ml Intake Oral 360 ml IV Total 450 ml # Voids 2 Laboratory Tests 09/10/17 06:20: White Blood Count 7.5, Red Blood Count 3.22L, Hemoglobin 10.7L, Hematocrit 31.6L , Mean Corpuscular Volume 98, Mean Corpuscular Hemoglobin 33.2H, Mean Corpuscular Hemoglobin Concent 33.8, Red Cell Distribution Width 12.4, Platelet Count 147L, Mean Platelet Volume 7.3, Neutrophils (%) (Auto) 64.9, Lymphocytes ( %) (Auto) 22.0, Monocytes (%) (Auto) 11.0H, Eosinophils (%) (Auto) 1.5, Basophils (%) (Auto) 0.6, Sodium Level 139, Potassium Level 4.0, Chloride Level 107, Carbon Dioxide Level 26, Anion Gap 6, Blood Urea Nitrogen 20H, Creatinine 1.0, Estimat Glomerular Filtration Rate , Glucose Level 117H, Calcium Level 8.3L Height (Feet): 5 Height (Inches): 0.00 Weight (Pounds): 156 General Appearance: no apparent distress EENT: normal ENT inspection Respiratory/Chest: normal breath sounds Abdomen: non tender, soft Extremities: non-tender SALVATORE CARRILLO Sep 10, 2017 22:39
[2017-09-10] MEDS: cefTRIAXone 1 GM in D5W 55 ML IVPB SCH (23:20)
[2017-09-11] VITALS: BP 110/81
[2017-09-11 04:00] VITALS: BP 141/83
[2017-09-11 08:00] VITALS: BP 124/70
[2017-09-11 08:25] LABS: ANION GAP 5 mmol/L (5-15); CALCIUM 8.5 MG/DL (8.5-10.1); CARBON DIOXIDE 27 MMOL/L (21-32); CHLORIDE 106 MMOL/L (98-107); CREATININE 0.9 MG/DL (0.55-1.30); POTASSIUM 3.7 MMOL/L (3.5-5.1); SODIUM 138 MMOL/L (136-145)
[2017-09-11 08:28] LABS: BASOPHILS % (AUTO) 0.6 % (0.0-2.0); EOSINOPHILS % (AUTO) 1.2 % (0.0-3.0); LYMPHOCYTES % (AUTO) 12.3 % (20.0-45.0); MEAN CORPUSCULAR HEMOGLOBIN 32.3 PG (27.0-31.0); MEAN CORPUSCULAR HGB CONC 32.8 G/DL (32.0-36.0); MEAN CORPUSCULAR VOLUME 98 FL (80-99); MEAN PLATELET VOLUME 7.7 FL (6.5-10.1); MONOCYTES % (AUTO) 8.8 % (1.0-10.0); NEUTROPHILS % (AUTO) 77.1 % (45.0-75.0); PLATELET COUNT 164 K/UL (150-450); RED BLOOD COUNT 3.28 M/UL (4.20-5.40); RED CELL DISTRIBUTION WIDTH 12.2 % (11.6-14.8); WHITE BLOOD COUNT 8.5 K/UL (4.8-10.8)
[2017-09-11] MEDS: Pericolace tab ORAL SCH (09:25)
[2017-09-11] MEDS: Xarelto 10mg tab ORAL SCH (09:25)
[2017-09-11] MEDS: Docusate 100mg cap ORAL SCH ×3 (09:25→17:57)
[2017-09-11] MEDS: Metoprolol Tartrate 50mg tab ORAL SCH ×2 (09:25→21:22)
[2017-09-11] MEDS: Norco 5mg/325mg tab ORAL PRN (09:54)
--- NOTE | 2017-09-11 10:43 | General Progress Note ---
Assessment/Plan Status: stable Assessment/Plan status: UTI start Rocephin Low K- PO supplement At fib in ICU on Cardiazem drip HTN adjust meds Ischemia in EKG Lt hip Fx had surgery 09/08 Echo: Left ventricular ejection fraction estimated to be 50- 55 %. Mild left ventricular hypertrophy. Plan: DC IV Stool softner change Rocephin to PO bactrim PO K as needed Gastric support monitor lytes and H&H and renal parameters per orders- per consultants DC planning Subjective ROS Limited/Unobtainable: No Constitutional: Reports: malaise Allergies: Coded Allergies: No Known Allergies (Unverified , 09/05/17) Objective Last 24 Hour Vital Signs Date Time Temp Pulse Resp B/P (MAP) Pulse Ox O2 Delivery O2 Flow Rate FiO2 09/11/17 09:25 81 124/70 09/11/17 09:25 81 09/11/17 08:00 97.0 81 18 124/70 95 Room Air 09/11/17 08:00 89 09/11/17 04:00 116 09/11/17 04:00 99.1 96 17 141/83 93 Room Air 09/11/17 00:00 96.4 94 19 110/81 93 Room Air 09/11/17 00:00 119 09/10/17 23:25 Nasal Cannula 2.0 28 09/10/17 23:25 99 Nasal Cannula 2.0 28 09/10/17 22:13 Nasal Cannula 2.0 28 09/10/17 22:13 99 Nasal Cannula 2.0 28 09/10/17 21:19 118 118/77 09/10/17 20:11 129 09/10/17 20:00 99.0 118 20 118/77 92 Room Air 09/10/17 16:07 98.7 113 18 139/75 95 Room Air 09/10/17 16:00 106 09/10/17 12:00 92 09/10/17 11:53 97.2 91 20 117/71 94 Room Air Laboratory Tests 09/11/17 07:40: White Blood Count 8.5, Red Blood Count 3.28L, Hemoglobin 10.6L, Hematocrit 32.3L , Mean Corpuscular Volume 98, Mean Corpuscular Hemoglobin 32.3H, Mean Corpuscular Hemoglobin Concent 32.8, Red Cell Distribution Width 12.2, Platelet Count 164, Mean Platelet Volume 7.7, Neutrophils (%) (Auto) 77.1H, Lymphocytes ( %) (Auto) 12.3L, Monocytes (%) (Auto) 8.8, Eosinophils (%) (Auto) 1.2, Basophils (%) (Auto) 0.6, Sodium Level 138, Potassium Level 3.7, Chloride Level 106, Carbon Dioxide Level 27, Anion Gap 5, Blood Urea Nitrogen 16, Creatinine 0.9, Estimat Glomerular Filtration Rate , Glucose Level 135H, Calcium Level 8.5 Height (Feet): 5 Height (Inches): 0.00 Weight (Pounds): 158 General Appearance: no apparent distress Cardiovascular: normal rate Respiratory/Chest: lungs clear Abdomen: soft Objective other PE not changed FREDY DASH Sep 11, 2017 10:43
[2017-09-11 11:36] VITALS: BP 115/66
--- NOTE | 2017-09-11 15:00 | General Progress Note ---
Assessment/Plan Problem List: (1) A-fib ICD Codes: I48.91 - Unspecified atrial fibrillation SNOMED: 68565730 (2) Femur fracture, left ICD Codes: S72.92XA - Unspecified fracture of left femur, initial encounter for closed fracture SNOMED: 76312418 (3) Atrial fibrillation ICD Codes: I48.91 - Unspecified atrial fibrillation SNOMED: 23416071 (4) Femoral neck fracture ICD Codes: S72.009A - Fracture of unspecified part of neck of unspecified femur , initial encounter for closed fracture SNOMED: 6728880 (5) Atrial fibrillation with RVR ICD Codes: I48.91 - Unspecified atrial fibrillation SNOMED: 847036152726908 Status: progressing Assessment/Plan a fib w rvr femure neck fracture heart rate is improving clinically improving no acute events Subjective ROS Limited/Unobtainable: Yes Allergies: Coded Allergies: No Known Allergies (Unverified , 09/05/17) Subjective pain at hip is improving Objective Last 24 Hour Vital Signs Date Time Temp Pulse Resp B/P (MAP) Pulse Ox O2 Delivery O2 Flow Rate FiO2 09/11/17 12:00 73 09/11/17 11:36 97.0 85 18 115/66 96 Room Air 09/11/17 09:25 81 124/70 09/11/17 09:25 81 09/11/17 08:00 97.0 81 18 124/70 95 Room Air 09/11/17 08:00 89 09/11/17 04:00 116 09/11/17 04:00 99.1 96 17 141/83 93 Room Air 09/11/17 00:00 96.4 94 19 110/81 93 Room Air 09/11/17 00:00 119 09/10/17 23:25 Nasal Cannula 2.0 28 09/10/17 23:25 99 Nasal Cannula 2.0 28 09/10/17 22:13 Nasal Cannula 2.0 28 09/10/17 22:13 99 Nasal Cannula 2.0 28 09/10/17 21:19 118 118/77 09/10/17 20:11 129 09/10/17 20:00 99.0 118 20 118/77 92 Room Air 09/10/17 16:07 98.7 113 18 139/75 95 Room Air 09/10/17 16:00 106 Laboratory Tests 09/11/17 07:40: White Blood Count 8.5, Red Blood Count 3.28L, Hemoglobin 10.6L, Hematocrit 32.3L , Mean Corpuscular Volume 98, Mean Corpuscular Hemoglobin 32.3H, Mean Corpuscular Hemoglobin Concent 32.8, Red Cell Distribution Width 12.2, Platelet Count 164, Mean Platelet Volume 7.7, Neutrophils (%) (Auto) 77.1H, Lymphocytes ( %) (Auto) 12.3L, Monocytes (%) (Auto) 8.8, Eosinophils (%) (Auto) 1.2, Basophils (%) (Auto) 0.6, Sodium Level 138, Potassium Level 3.7, Chloride Level 106, Carbon Dioxide Level 27, Anion Gap 5, Blood Urea Nitrogen 16, Creatinine 0.9, Estimat Glomerular Filtration Rate , Glucose Level 135H, Calcium Level 8.5 Height (Feet): 5 Height (Inches): 0.00 Weight (Pounds): 158 Respiratory/Chest: lungs clear Abdomen: soft Lien Hoang MD Sep 11, 2017 15:00
[2017-09-11 16:00] VITALS: BP 108/50
--- NOTE | 2017-09-11 16:49 | Cardiac Electrophysiology PN ---
Assessment/Plan Assessment/Plan 1. Atrial fibrillation with rapid ventricular response .On Lopressor 100 bid and Digoxin 0.25 daily. Patient's CHADS2 score is 5 and she certainly needs long-term anticoagulation.Continue Xarelto 20 mg daily. 2. Hypertension. On metoprolol 100 bid. 3. Ischemic changes on electrocardiogram.No chest pain. Nuclear stress test but no post stress images. Tolerated surgery with no chest pain or SOB. 4. Left hip fracture.S/ ORIF by Dr.Ganjianpour ARANA RN Subjective Subjective Remained in atrial fib with controlled rate.Tolerating Xarelto. Objective Last 24 Hour Vital Signs Date Time Temp Pulse Resp B/P (MAP) Pulse Ox O2 Delivery O2 Flow Rate FiO2 09/11/17 12:00 73 09/11/17 11:36 97.0 85 18 115/66 96 Room Air 09/11/17 09:25 81 124/70 09/11/17 09:25 81 09/11/17 08:00 97.0 81 18 124/70 95 Room Air 09/11/17 08:00 89 09/11/17 04:00 116 09/11/17 04:00 99.1 96 17 141/83 93 Room Air 09/11/17 00:00 96.4 94 19 110/81 93 Room Air 09/11/17 00:00 119 09/10/17 23:25 Nasal Cannula 2.0 28 09/10/17 23:25 99 Nasal Cannula 2.0 28 09/10/17 22:13 Nasal Cannula 2.0 28 09/10/17 22:13 99 Nasal Cannula 2.0 28 09/10/17 21:19 118 118/77 09/10/17 20:11 129 09/10/17 20:00 99.0 118 20 118/77 92 Room Air Laboratory Tests Test 09/11/17 07:40 White Blood Count 8.5 K/UL (4.8-10.8) Red Blood Count 3.28 M/UL (4.20-5.40) L Hemoglobin 10.6 G/DL (12.0-16.0) L Hematocrit 32.3 % (37.0-47.0) L Mean Corpuscular Volume 98 FL (80-99) Mean Corpuscular Hemoglobin 32.3 PG (27.0-31.0) H Mean Corpuscular Hemoglobin Concent 32.8 G/DL (32.0-36.0) Red Cell Distribution Width 12.2 % (11.6-14.8) Platelet Count 164 K/UL (150-450) Mean Platelet Volume 7.7 FL (6.5-10.1) Neutrophils (%) (Auto) 77.1 % (45.0-75.0) H Lymphocytes (%) (Auto) 12.3 % (20.0-45.0) L Monocytes (%) (Auto) 8.8 % (1.0-10.0) Eosinophils (%) (Auto) 1.2 % (0.0-3.0) Basophils (%) (Auto) 0.6 % (0.0-2.0) Sodium Level 138 MMOL/L (136-145) Potassium Level 3.7 MMOL/L (3.5-5.1) Chloride Level 106 MMOL/L (98-107) Carbon Dioxide Level 27 MMOL/L (21-32) Anion Gap 5 mmol/L (5-15) Blood Urea Nitrogen 16 mg/dL (7-18) Creatinine 0.9 MG/DL (0.55-1.30) Estimat Glomerular Filtration Rate mL/min (>60) Glucose Level 135 MG/DL (74-106) H Calcium Level 8.5 MG/DL (8.5-10.1) Objective HEAD AND NECK: Shows no JVD. LUNGS: Clear. CARDIOVASCULAR: Irregularly irregular. S1 and S2, with no gallop or murmur. ABDOMEN: Soft. EXTREMITIES: S/P Left hip ORIF ANIYA SMITH Sep 11, 2017 16:49
[2017-09-11] MEDS: Bactrim DS (160mg/800mg) tab ORAL SCH (17:57)
[2017-09-11 20:00] VITALS: BP 130/69
[2017-09-12] VITALS: BP 123/84
[2017-09-12 04:11] VITALS: BP 139/87
[2017-09-12 08:00] VITALS: BP 133/80
--- NOTE | 2017-09-12 08:16 | General Progress Note ---
Assessment/Plan Assessment/Plan ASSESSMENT AND RECOMMENDATIONS: 1. Thrombocytopenia. Resolved. --> plt goal above 20k 2. Anemia secondary to chronic disease. --> hgb goal between 9-11. continue to monitor 3. Hypertension, on metoprolol. 4. Ischemic changes on EKG. Nuclear stress test scheduled. 5. Status post left hip fracture. She was seen by surgical service, Dr. Iverson. 6. Atrial fibrillation, on Cardizem. Increase Lopressor. Continue digoxin. Subjective Date patient seen: Sep 11, 2017 Constitutional: Reports: no symptoms HEENT: Reports: no symptoms Cardiovascular: Reports: no symptoms Respiratory: Reports: no symptoms Gastrointestinal/Abdominal: Reports: no symptoms Genitourinary: Reports: no symptoms Neurologic/Psychiatric: Reports: no symptoms Endocrine: Reports: no symptoms Hematologic/Lymphatic: Reports: no symptoms Allergies: Coded Allergies: No Known Allergies (Unverified , 09/05/17) Subjective labs stable Objective Last 24 Hour Vital Signs Date Time Temp Pulse Resp B/P (MAP) Pulse Ox O2 Delivery O2 Flow Rate FiO2 09/12/17 07:46 Room Air 09/12/17 07:45 96 Room Air 09/12/17 04:11 99.0 89 20 139/87 95 Room Air 09/12/17 04:00 81 09/12/17 00:00 98.0 62 20 123/84 97 09/12/17 00:00 71 09/11/17 21:22 95 137/50 09/11/17 20:09 Room Air 09/11/17 20:09 95 Room Air 09/11/17 20:00 82 09/11/17 20:00 98.4 68 20 130/69 96 Room Air 09/11/17 16:00 69 09/11/17 16:00 97.2 70 18 108/50 95 Room Air 09/11/17 12:00 73 09/11/17 11:36 97.0 85 18 115/66 96 Room Air 09/11/17 09:25 81 124/70 09/11/17 09:25 81 Height (Feet): 5 Height (Inches): 0.00 Weight (Pounds): 158 General Appearance: no apparent distress EENT: normal ENT inspection Neck: non-tender, normal alignment Respiratory/Chest: lungs clear Abdomen: no organomegaly Pratik Sexton Sep 12, 2017 08:16
[2017-09-12 08:32] LABS: BASOPHILS % (AUTO) 0.5 % (0.0-2.0); EOSINOPHILS % (AUTO) 0.9 % (0.0-3.0); MEAN CORPUSCULAR HEMOGLOBIN 33.8 PG (27.0-31.0); MEAN CORPUSCULAR HGB CONC 34.6 G/DL (32.0-36.0); MEAN CORPUSCULAR VOLUME 98 FL (80-99); MEAN PLATELET VOLUME 7.3 FL (6.5-10.1); MONOCYTES % (AUTO) 7.4 % (1.0-10.0); NEUTROPHILS % (AUTO) 71.2 % (45.0-75.0); PLATELET COUNT 177 K/UL (150-450); RED BLOOD COUNT 3.04 M/UL (4.20-5.40); RED CELL DISTRIBUTION WIDTH 12.1 % (11.6-14.8); WHITE BLOOD COUNT 8.1 K/UL (4.8-10.8)
[2017-09-12] MEDS: Bactrim DS (160mg/800mg) tab ORAL SCH ×2 (08:56→16:56)
[2017-09-12] MEDS: Docusate 100mg cap ORAL SCH ×3 (08:56→16:56)
[2017-09-12] MEDS: Metoprolol Tartrate 50mg tab ORAL SCH ×2 (08:57→21:34)
[2017-09-12] MEDS: Xarelto 10mg tab ORAL SCH (08:57)
--- NOTE | 2017-09-12 10:29 | 48 Hour Post Anesthesia Eval ---
Post Anesthesia Evaluation Procedure: L hip hemiarthroplasty Date of Evaluation: Sep 12, 2017 Time of Evaluation: 10:30 Blood Pressure Systolic: 140 0: 74 Pulse Rate: 69 Respiratory Rate: 14 Temperature (Fahrenheit): 97 O2 Sat by Pulse Oximetry: 99 Airway: patent Nausea: No Vomiting: No Pain Intensity: 0 Hydration Status: adequate Mental Status/LOC: patient returned to baseline Follow-up care needed: patient intructions given Bruce Smith M.D. Sep 12, 2017 10:29
[2017-09-12 12:00] VITALS: BP 136/68
--- NOTE | 2017-09-12 13:22 | General Progress Note ---
Assessment/Plan Status: stable Assessment/Plan status: UTI start Rocephin Low K- PO supplement At fib in ICU on Cardiazem drip HTN adjust meds Ischemia in EKG Lt hip Fx had surgery 09/08 Echo: Left ventricular ejection fraction estimated to be 50- 55 %. Mild left ventricular hypertrophy. Plan: DC IV Stool softner change Rocephin to PO bactrim PO K as needed Gastric support monitor lytes and H&H and renal parameters per orders- per consultants DC planning Subjective ROS Limited/Unobtainable: No Constitutional: Reports: malaise Allergies: Coded Allergies: No Known Allergies (Unverified , 09/05/17) Objective Last 24 Hour Vital Signs Date Time Temp Pulse Resp B/P (MAP) Pulse Ox O2 Delivery O2 Flow Rate FiO2 09/12/17 12:00 97.5 63 18 136/68 96 Room Air 09/12/17 10:29 69 14 99 09/12/17 08:58 84 09/12/17 08:57 84 133/80 09/12/17 08:00 97.9 84 18 133/80 93 Room Air 09/12/17 07:46 Room Air 09/12/17 07:45 96 Room Air 09/12/17 07:22 93 09/12/17 04:11 99.0 89 20 139/87 95 Room Air 09/12/17 04:00 81 09/12/17 00:00 98.0 62 20 123/84 97 09/12/17 00:00 71 09/11/17 21:22 95 137/50 09/11/17 20:09 Room Air 09/11/17 20:09 95 Room Air 09/11/17 20:00 82 09/11/17 20:00 98.4 68 20 130/69 96 Room Air 09/11/17 16:00 69 09/11/17 16:00 97.2 70 18 108/50 95 Room Air Laboratory Tests 09/12/17 07:35: White Blood Count 8.1, Red Blood Count 3.04L, Hemoglobin 10.3L, Hematocrit 29.7L , Mean Corpuscular Volume 98, Mean Corpuscular Hemoglobin 33.8H, Mean Corpuscular Hemoglobin Concent 34.6, Red Cell Distribution Width 12.1, Platelet Count 177, Mean Platelet Volume 7.3, Neutrophils (%) (Auto) 71.2, Lymphocytes (% ) (Auto) 20.0, Monocytes (%) (Auto) 7.4, Eosinophils (%) (Auto) 0.9, Basophils ( %) (Auto) 0.5 Height (Feet): 5 Height (Inches): 0.00 Weight (Pounds): 158 General Appearance: no apparent distress Objective other PE not changed FREDY DASH Sep 12, 2017 13:22
[2017-09-12] MEDS ORDERED: Tubing IV Secondary IV ONE (14:17)
--- NOTE | 2017-09-12 15:06 | Cardiac Electrophysiology PN ---
Assessment/Plan Assessment/Plan 1. Atrial fibrillation with rapid ventricular response .On Lopressor 100 bid and Digoxin 0.25 daily and Xarelto 20 mg daily. 2. Hypertension. On metoprolol 100 bid. 3. Ischemic changes on electrocardiogram.No chest pain. Nuclear stress test but no post stress images. Tolerated surgery with no chest pain or SOB. 4. Left hip fracture.S/ ORIF by Dr.Ganjianpour ARANA RN DC to [facility] today Subjective Subjective No chest pain or SOB. In atrial fib with controlled rate.Awaiting ambulance to DC Objective Last 24 Hour Vital Signs Date Time Temp Pulse Resp B/P (MAP) Pulse Ox O2 Delivery O2 Flow Rate FiO2 09/12/17 12:00 97.5 63 18 136/68 96 Room Air 09/12/17 11:34 75 09/12/17 10:29 69 14 99 09/12/17 08:58 84 09/12/17 08:57 84 133/80 09/12/17 08:00 97.9 84 18 133/80 93 Room Air 09/12/17 07:46 Room Air 09/12/17 07:45 96 Room Air 09/12/17 07:22 93 09/12/17 04:11 99.0 89 20 139/87 95 Room Air 09/12/17 04:00 81 09/12/17 00:00 98.0 62 20 123/84 97 09/12/17 00:00 71 09/11/17 21:22 95 137/50 09/11/17 20:09 Room Air 09/11/17 20:09 95 Room Air 09/11/17 20:00 82 09/11/17 20:00 98.4 68 20 130/69 96 Room Air 09/11/17 16:00 69 09/11/17 16:00 97.2 70 18 108/50 95 Room Air Laboratory Tests Test 09/12/17 07:35 White Blood Count 8.1 K/UL (4.8-10.8) Red Blood Count 3.04 M/UL (4.20-5.40) L Hemoglobin 10.3 G/DL (12.0-16.0) L Hematocrit 29.7 % (37.0-47.0) L Mean Corpuscular Volume 98 FL (80-99) Mean Corpuscular Hemoglobin 33.8 PG (27.0-31.0) H Mean Corpuscular Hemoglobin Concent 34.6 G/DL (32.0-36.0) Red Cell Distribution Width 12.1 % (11.6-14.8) Platelet Count 177 K/UL (150-450) Mean Platelet Volume 7.3 FL (6.5-10.1) Neutrophils (%) (Auto) 71.2 % (45.0-75.0) Lymphocytes (%) (Auto) 20.0 % (20.0-45.0) Monocytes (%) (Auto) 7.4 % (1.0-10.0) Eosinophils (%) (Auto) 0.9 % (0.0-3.0) Basophils (%) (Auto) 0.5 % (0.0-2.0) Objective HEAD AND NECK: Shows no JVD. LUNGS: Clear. CARDIOVASCULAR: Irregularly irregular. S1 and S2, with no gallop or murmur. ABDOMEN: Soft. EXTREMITIES: S/P Left hip ORIF ANIYA SMITH Sep 12, 2017 15:06
[2017-09-12 16:00] VITALS: BP 114/79
[2017-09-12] MEDS ORDERED: HYDROmorphone 1mg/ml Carpuject SUBQ PRN (16:45)
--- NOTE | 2017-09-12 16:45 | General Progress Note ---
Assessment/Plan Assessment/Plan ASSESSMENT AND RECOMMENDATIONS: 1. Thrombocytopenia. Resolved. --> plt goal above 20k 2. Anemia secondary to chronic disease. --> hgb goal between 9-11. continue to monitor 3. Hypertension, on metoprolol. 4. Ischemic changes on EKG. Nuclear stress test scheduled. 5. Status post left hip fracture. She was seen by surgical service, Dr. Iverson. 6. Atrial fibrillation.. Subjective Constitutional: Reports: no symptoms HEENT: Reports: no symptoms Cardiovascular: Reports: no symptoms Respiratory: Reports: no symptoms Gastrointestinal/Abdominal: Reports: no symptoms Genitourinary: Reports: no symptoms Neurologic/Psychiatric: Reports: no symptoms Endocrine: Reports: no symptoms Hematologic/Lymphatic: Reports: no symptoms Allergies: Coded Allergies: No Known Allergies (Unverified , 09/05/17) Subjective dc planning, labs stable Objective Last 24 Hour Vital Signs Date Time Temp Pulse Resp B/P (MAP) Pulse Ox O2 Delivery O2 Flow Rate FiO2 09/12/17 16:35 93 09/12/17 12:00 97.5 63 18 136/68 96 Room Air 09/12/17 11:34 75 09/12/17 10:29 69 14 99 09/12/17 08:58 84 09/12/17 08:57 84 133/80 09/12/17 08:00 97.9 84 18 133/80 93 Room Air 09/12/17 07:46 Room Air 09/12/17 07:45 96 Room Air 09/12/17 07:22 93 09/12/17 04:11 99.0 89 20 139/87 95 Room Air 09/12/17 04:00 81 09/12/17 00:00 98.0 62 20 123/84 97 09/12/17 00:00 71 09/11/17 21:22 95 137/50 09/11/17 20:09 Room Air 09/11/17 20:09 95 Room Air 09/11/17 20:00 82 09/11/17 20:00 98.4 68 20 130/69 96 Room Air Laboratory Tests 09/12/17 07:35: White Blood Count 8.1, Red Blood Count 3.04L, Hemoglobin 10.3L, Hematocrit 29.7L , Mean Corpuscular Volume 98, Mean Corpuscular Hemoglobin 33.8H, Mean Corpuscular Hemoglobin Concent 34.6, Red Cell Distribution Width 12.1, Platelet Count 177, Mean Platelet Volume 7.3, Neutrophils (%) (Auto) 71.2, Lymphocytes (% ) (Auto) 20.0, Monocytes (%) (Auto) 7.4, Eosinophils (%) (Auto) 0.9, Basophils ( %) (Auto) 0.5 Height (Feet): 5 Height (Inches): 0.00 Weight (Pounds): 158 General Appearance: no apparent distress EENT: normal ENT inspection Neck: normal alignment Cardiovascular: normal rate, regular rhythm Edema: trace edema Neurologic: alert Skin: normal pigmentation Pratik Sexton Sep 12, 2017 16:45
[2017-09-12 20:00] VITALS: BP 136/98
--- NOTE | 2017-09-12 20:33 | General Progress Note ---
Assessment/Plan Problem List: (1) A-fib ICD Codes: I48.91 - Unspecified atrial fibrillation SNOMED: 40169804 (2) Femur fracture, left ICD Codes: S72.92XA - Unspecified fracture of left femur, initial encounter for closed fracture SNOMED: 94504661 (3) Atrial fibrillation ICD Codes: I48.91 - Unspecified atrial fibrillation SNOMED: 57481660 (4) Femoral neck fracture ICD Codes: S72.009A - Fracture of unspecified part of neck of unspecified femur , initial encounter for closed fracture SNOMED: 5347990 (5) Atrial fibrillation with RVR ICD Codes: I48.91 - Unspecified atrial fibrillation SNOMED: 231992640106176 Status: progressing Assessment/Plan a fib w rvr femure neck fracture s/p orif dc if ok w ortho and dr prakash Subjective ROS Limited/Unobtainable: Yes Allergies: Coded Allergies: No Known Allergies (Unverified , 09/05/17) Subjective pain at hip is improving Objective Last 24 Hour Vital Signs Date Time Temp Pulse Resp B/P (MAP) Pulse Ox O2 Delivery O2 Flow Rate FiO2 09/12/17 20:00 97.3 100 20 136/98 98 Room Air 2.0 28 09/12/17 16:35 93 09/12/17 16:00 97.3 74 20 114/79 96 Room Air 09/12/17 12:00 97.5 63 18 136/68 96 Room Air 09/12/17 11:34 75 09/12/17 10:29 69 14 99 09/12/17 08:58 84 09/12/17 08:57 84 133/80 09/12/17 08:00 97.9 84 18 133/80 93 Room Air 09/12/17 07:46 Room Air 09/12/17 07:45 96 Room Air 09/12/17 07:22 93 09/12/17 04:11 99.0 89 20 139/87 95 Room Air 09/12/17 04:00 81 09/12/17 00:00 98.0 62 20 123/84 97 09/12/17 00:00 71 09/11/17 21:22 95 137/50 Intake and Output 09/12/17 09/13/17 19:00 07:00 Intake Total 1000 ml Balance 1000 ml Intake Oral 1000 ml # Voids 4 Laboratory Tests 09/12/17 07:35: White Blood Count 8.1, Red Blood Count 3.04L, Hemoglobin 10.3L, Hematocrit 29.7L , Mean Corpuscular Volume 98, Mean Corpuscular Hemoglobin 33.8H, Mean Corpuscular Hemoglobin Concent 34.6, Red Cell Distribution Width 12.1, Platelet Count 177, Mean Platelet Volume 7.3, Neutrophils (%) (Auto) 71.2, Lymphocytes (% ) (Auto) 20.0, Monocytes (%) (Auto) 7.4, Eosinophils (%) (Auto) 0.9, Basophils ( %) (Auto) 0.5 Height (Feet): 5 Height (Inches): 0.00 Weight (Pounds): 158 EENT: PERRL/EOMI Cardiovascular: normal rate Lien Hoang MD Sep 12, 2017 20:33
[2017-09-13 00:11] VITALS: BP 142/78
[2017-09-13 04:00] VITALS: BP 138/98
[2017-09-13] MEDS: Xarelto 10mg tab ORAL SCH (08:19)
[2017-09-13] MEDS: Metoprolol Tartrate 50mg tab ORAL SCH (08:20)
[2017-09-13] MEDS: Bactrim DS (160mg/800mg) tab ORAL SCH (08:20)
[2017-09-13] MEDS: Docusate 100mg cap ORAL SCH (08:20)
[2017-09-13 08:31] VITALS: BP 152/97
--- NOTE | 2017-09-13 09:47 | General Progress Note ---
Assessment/Plan Status: stable Assessment/Plan status: UTI start Rocephin Low K- PO supplement At fib in ICU on Cardiazem drip HTN adjust meds Ischemia in EKG Lt hip Fx had surgery 09/08 Echo: Left ventricular ejection fraction estimated to be 50- 55 %. Mild left ventricular hypertrophy. Plan: DC IV Stool softner change Rocephin to PO bactrim PO K as needed Gastric support monitor lytes and H&H and renal parameters per orders- per consultants DC planning Subjective ROS Limited/Unobtainable: No Constitutional: Reports: malaise Allergies: Coded Allergies: No Known Allergies (Unverified , 09/05/17) Objective Last 24 Hour Vital Signs Date Time Temp Pulse Resp B/P (MAP) Pulse Ox O2 Delivery O2 Flow Rate FiO2 09/13/17 08:31 97.2 86 18 152/97 96 Room Air 09/13/17 08:20 86 152/97 09/13/17 08:20 86 09/13/17 08:00 93 09/13/17 04:00 71 09/13/17 04:00 97.0 62 20 138/98 96 Room Air 2.0 28 09/13/17 00:11 97.0 62 20 142/78 98 Room Air 09/13/17 00:00 79 09/12/17 21:34 94 138/92 09/12/17 20:00 97.3 100 20 136/98 98 Room Air 2.0 28 09/12/17 20:00 87 09/12/17 19:30 95 Room Air 21 09/12/17 19:30 Room Air 21 09/12/17 16:35 93 09/12/17 16:00 97.3 74 20 114/79 96 Room Air 09/12/17 12:00 97.5 63 18 136/68 96 Room Air 09/12/17 11:34 75 09/12/17 10:29 69 14 99 Intake and Output 09/13/17 09/14/17 19:00 07:00 Intake Total 120 ml Balance 120 ml Intake Oral 120 ml Height (Feet): 5 Height (Inches): 0.00 Weight (Pounds): 152 General Appearance: no apparent distress Cardiovascular: regular rhythm Respiratory/Chest: lungs clear Abdomen: soft Objective other PE not changed FREDY DASH Sep 13, 2017 09:47
[2017-09-13 11:54] VITALS: BP 122/74
--- NOTE | 2017-09-13 13:17 | Cardiac Electrophysiology PN ---
Assessment/Plan Assessment/Plan 1. Atrial fibrillation with rapid ventricular response. Rate controlled on Lopressor 100 bid and Digoxin 0.25 daily and Xarelto 20 mg daily. 2. Hypertension. On metoprolol 100 bid. 3. Ischemic changes on electrocardiogram.No chest pain. Nuclear stress test but no post stress images. Tolerated surgery with no chest pain or SOB. 4. Left hip fracture.S/ ORIF by Dr.Ganjianpour ARANA RN DC to [facility] today Subjective Subjective No chest pain or SOB.Expecting discharge today Objective Last 24 Hour Vital Signs Date Time Temp Pulse Resp B/P (MAP) Pulse Ox O2 Delivery O2 Flow Rate FiO2 09/13/17 11:54 97.0 85 20 122/74 97 Room Air 09/13/17 10:16 95 Room Air 21 09/13/17 10:16 Room Air 21 09/13/17 08:31 97.2 86 18 152/97 96 Room Air 09/13/17 08:20 86 152/97 09/13/17 08:20 86 09/13/17 08:00 93 09/13/17 04:00 71 09/13/17 04:00 97.0 62 20 138/98 96 Room Air 2.0 28 09/13/17 00:11 97.0 62 20 142/78 98 Room Air 09/13/17 00:00 79 09/12/17 21:34 94 138/92 09/12/17 20:00 97.3 100 20 136/98 98 Room Air 2.0 28 09/12/17 20:00 87 09/12/17 19:30 95 Room Air 21 09/12/17 19:30 Room Air 21 09/12/17 16:35 93 09/12/17 16:00 97.3 74 20 114/79 96 Room Air Intake and Output 09/13/17 09/14/17 18:59 06:59 Intake Total 120 ml Balance 120 ml Intake Oral 120 ml Objective HEAD AND NECK: Shows no JVD. LUNGS: Clear. CARDIOVASCULAR: Irregularly irregular. S1 and S2, with no gallop or murmur. ABDOMEN: Soft. EXTREMITIES: S/P Left hip ORIF ANIYA SMITH Sep 13, 2017 13:16
--- NOTE | 2017-09-13 21:59 | General Progress Note ---
Assessment/Plan Assessment/Plan ASSESSMENT AND RECOMMENDATIONS: 1. Thrombocytopenia. Resolved. --> plt goal above 20k 2. Anemia secondary to chronic disease. --> hgb goal between 9-11. continue to monitor 3. Hypertension, on metoprolol. 4. Status post left hip fracture. She was seen by surgical service, Dr. Iverson. 5. Atrial fibrillation.. Subjective ROS Limited/Unobtainable: Yes Allergies: Coded Allergies: No Known Allergies (Unverified , 09/05/17) Subjective dc planning, labs stable Objective Last 24 Hour Vital Signs Date Time Temp Pulse Resp B/P (MAP) Pulse Ox O2 Delivery O2 Flow Rate FiO2 09/13/17 12:00 66 09/13/17 11:54 97.0 85 20 122/74 97 Room Air 09/13/17 10:16 95 Room Air 21 09/13/17 10:16 Room Air 21 09/13/17 08:31 97.2 86 18 152/97 96 Room Air 09/13/17 08:20 86 152/97 09/13/17 08:20 86 09/13/17 08:00 93 09/13/17 04:00 71 09/13/17 04:00 97.0 62 20 138/98 96 Room Air 2.0 28 09/13/17 00:11 97.0 62 20 142/78 98 Room Air 09/13/17 00:00 79 Intake and Output 09/13/17 09/14/17 19:00 07:00 Intake Total 240 ml Balance 240 ml Intake Oral 240 ml # Voids 1 Height (Feet): 5 Height (Inches): 0.00 Weight (Pounds): 152 General Appearance: no apparent distress Pratik Sexton Sep 13, 2017 21:59
--- NOTE | 2017-09-15 12:02 | Discharge Summary ---
Discharge Summary Hospital Course Date of Admission Sep 05, 2017 at 00:56 Date of Discharge Sep 13, 2017 at 12:57 Admitting Diagnosis femur fracture, atrial fibrilation RVR HPI Paris Vazquez is a 76 year old female who was admitted on Sep 05, 2017 at 00:56 for Femur Fracture, Atrial Fibrilation Rvr Hospital Course [id number] Discharge Discharge Disposition Patient was discharged to SNF/Subacute Facility(03) Discharge Diagnoses: Leslye Franklin NP Sep 15, 2017 12:02
--- NOTE | 2017-09-16 07:46 | Discharge Summary 2 SIG ---
DATE OF ADMISSION: 09/05/2017 DATE OF DISCHARGE: 09/13/2017 CONSULTANTS: 1. Rufino Roger M.D. 2. Pratik Sexton M.D. 3. Primo Belcher M.D. 4. Kal Iverson M.D. BRIEF HOSPITAL COURSE: The patient is a 76-year-old female who reported to have a fall while walking at the nursing facility, was taken to [facility] by paramedics. The patient was complaining of discomfort to the left hip. On evaluation, x-ray showed a left-sided femoral neck fracture. Blood work showed leukocytosis. Lactic acid was elevated to 2.5. Urine WBC was 20 to 30 with 2 to 4 RBC and 2+ leukocyte esterase. Chest x-ray done showed prominent vascularity. Pelvic CT showed an acute left femoral neck fracture. The patient was given surgical and nonsurgical options. She consented to surgery. The patient was stabilized prior to surgery. She was seen by Dr. Roger. The patient had atrial fibrillation with RVR and was transferred to ICU, started on Cardizem drip. She was continued on digoxin and metoprolol. Anticoagulation was not started due to pending upcoming surgery. Echocardiogram done showed ejection fraction of 55% with mild left atrial enlargement and moderate tricuspid regurgitation. EKG was in atrial fibrillation with RVR at a rate of 132 as well as anterolateral ischemia. She underwent a nuclear stress test. She was also started on Rocephin for urine infection. She underwent left hip hemiarthroplasty on 09/08/[address] Iverson. Postoperatively, she was started on Xarelto 20 mg daily. CHADS2 score was 5 and would need long-term anticoagulation. Atrial fibrillation controlled. She was continued on Lopressor 100 mg b.i.d. and digoxin 0.25 mg daily. She was given physical therapy and was eventually discharged to [facility]. FINAL DIAGNOSES: 1. Left hip displaced femoral neck fracture secondary to fall, status post left hip hemiarthroplasty on 09/08/2017. 2. Atrial fibrillation with rapid ventricular response. 3. Hypertension. 4. Ischemic changes on electrocardiogram. 5. Thrombocytopenia. 6. Urinary tract infection with Escherichia coli. 7. Hypokalemia. DISPOSITION: The patient was discharged to [facility]. FOLLOWUP: The patient advised to follow up with Dr. Iverson two weeks after discharge. Lien Hoang M.D. I have been assigned to dictate discharge summary on this account and I was not involved in the patient's management. Leslye Franklin N.P. DR: Chanelle JOB#: [id number] CC: HAILEY
== END 2017-09-13 12:57 | DRG 470 ==
LOC: EDBD 00:08 → EMR 00:21 → 2E 00:56 → EDBEDREQ 01:33 → 2E 11:46 → ICU 16:02 → 2E 09-07 14:20
PROC: 0SRS0JZ Replacement of Left Hip Joint, Femoral Surface with Synthetic Substitute, Open Approach (ICD-10-PCS; principal; 2017-09-08 13:00)
DX: S72.012A Unspecified intracapsular fracture of left femur, initial encounter for closed fracture (principal); D69.6 Thrombocytopenia, unspecified; N39.0 Urinary tract infection, site not specified; Y92.129 Unspecified place in nursing home as the place of occurrence of the external cause; W01.0XXA Fall on same level from slipping, tripping and stumbling without subsequent striking against object, initial encounter; I48.91 Unspecified atrial fibrillation; I10 Essential (primary) hypertension; Z79.01 Long term (current) use of anticoagulants; I25.6 Silent myocardial ischemia; Z86.73 Personal history of transient ischemic attack (TIA), and cerebral infarction without residual deficits
CPT/HCPCS: 36415; 71010; 72170; 72192; 73502; 78451; 80048; 80053; 80061; 80162; 81003; 82248; 82550; 82553; 82607; 82728; 82746; 82962; 82977; 83036; 83540; 83550; 83605; 83690; 83735; 83880; 84100; 84439; 84443; 84484; 84550; 85025; 85379; 85610; 85730; 86140; 87040; 87081; 87086; 87181; 93005; 93306; 94003; 94150; 94760; 99285; C9399; J2250